=== PATIENT | male | born 1940 | race Caucasian/White ===

== ENCOUNTER → 2016-09-15 | Outpatient (CLI) | payer OTHER ==
[~2016-09-15] MED LIST: GABA1CAP PO; GLUC1CAP28 PO; LOSA100T26; MULT-190 PO; NAPR1TAB9 PO; NAPR500T3; OMEG10002 PO
[2016-09-15 12:28] LABS: BASO % 1.1 %; BASO ABS # 0.04 K/uL (0-0.2); COMPLETE YES; EOS % 3.3 %; HEMATOCRIT 41.4 % (42-52); LYMPH % 31.5 %; LYMPH ABS # 1.15 K/uL (1.2-3.4); MEAN CELL VOLUME 98.1 fL (80-100); MEAN CORPUSCULAR HEMOGLOBIN 33.4 pg (25-34); MEAN CORPUSCULAR HGB CONC 34.1 g/dl (32-36); MEAN PLATELET VOLUME 10.5 fL (7.4-10.4); MONO % 14.8 %; NEUT % 49.3 %; PLATELET COUNT 215 K/uL (130-400); RED BLOOD COUNT 4.22 M/uL (4.7-6.1); WHITE BLOOD COUNT 3.65 K/uL (4.8-10.8)
[2016-09-15 13:41] LABS: ESTIMATED AVERAGE GLUCOSE 111 mg/dl; HA1C FLAG Normal (Normal)
[2016-09-15 15:30] LABS: ALB/GLOB RATIO 1.4 (0.9-2); ALT/SGPT 21 U/L (12-78); BLOOD UREA NITROGEN 19 mg/dl (7-18); CALCIUM 9.3 mg/dl (8.5-10.1); CARBON DIOXIDE 29 mmol/L (21-32); CHLORIDE 105 mmol/L (98-107); GLUCOSE 103 mg/dl (70-99); SODIUM 142 mmol/L (136-145)
[2016-09-15 15:34] LABS: ALKALINE PHOSPHATASE 64 U/L (45-117); AST/SGOT 15 U/L (15-37); CHOLESTEROL 172 mg/dl (0-200); CHOLESTEROL/HDL RATIO 2.5; HDL CHOLESTEROL 68 mg/dl; LDL CHOLESTEROL CALCULATED 90 mg/dl; TRIGLYCERIDES 68 mg/dl (0-150); VERY LOW DENSITY LIPOPROT CALC 14 mg/dl
== END | disposition home or self-care (01) ==
LOC: C.LABBFT 07:52
PROVIDERS: ATTEND Internal Medicine
DX: D64.9 Anemia, unspecified (principal); R73.01 Impaired fasting glucose; I10 Essential (primary) hypertension

== ENCOUNTER → 2017-03-27 | Outpatient (CLI) | payer OTHER ==
[2017-03-27 12:12] LABS: BASO % 0.9 %; BASO ABS # 0.03 K/uL (0-0.2); COMPLETE YES; EOS % 3.7 %; HEMATOCRIT 40.2 % (42-52); LYMPH % 34.6 %; LYMPH ABS # 1.13 K/uL (1.2-3.4); MEAN CELL VOLUME 99.5 fL (80-100); MEAN CORPUSCULAR HEMOGLOBIN 32.2 pg (25-34); MEAN CORPUSCULAR HGB CONC 32.3 g/dl (32-36); MEAN PLATELET VOLUME 10.6 fL (7.4-10.4); MONO % 13.8 %; PLATELET COUNT 193 K/uL (130-400); RED BLOOD COUNT 4.04 M/uL (4.7-6.1); WHITE BLOOD COUNT 3.27 K/uL (4.8-10.8)
[2017-03-27 12:19] LABS: BLOOD UREA NITROGEN 32 mg/dl (7-18); BUN/CREATININE RATIO 32.2 (10-20); CALCIUM 9.4 mg/dl (8.5-10.1); CARBON DIOXIDE 29 mmol/L (21-32); CHLORIDE 106 mmol/L (98-107); GLUCOSE 103 mg/dl (70-99); POTASSIUM 4.1 mmol/L (3.5-5.1); SODIUM 141 mmol/L (136-145)
[2017-03-27 12:23] LABS: ALB/GLOB RATIO 1.2 (0.9-2); ALKALINE PHOSPHATASE 77 U/L (45-117); ALT/SGPT 27 U/L (12-78); AST/SGOT 22 U/L (15-37); CHOLESTEROL 160 mg/dl (0-200); CHOLESTEROL/HDL RATIO 2.8; HDL CHOLESTEROL 58 mg/dl; LDL CHOLESTEROL CALCULATED 90 mg/dl; TRIGLYCERIDES 58 mg/dl (0-150); VERY LOW DENSITY LIPOPROT CALC 12 mg/dl
[2017-03-27 12:57] LABS: ESTIMATED AVERAGE GLUCOSE 123 mg/dl; HA1C FLAG Normal (Normal)
--- NOTE | 2017-04-05 09:45 | CODING QUERY MEDICAL NECESSITY ---
SUPPORTING DIAGNOSIS NEEDED Monet, A supporting diagnosis is required for the test/procedure performed on this patient in order for us to be reimbursed by the patient's insurance. Please provide a supporting diagnosis for the following test/procedure listed below next to the test name along with your signature. *If there is no additional diagnosis for this patient that would support the following test/procedure please document that below next to the test/procedure. Test(s)/Procedure(s) that require a supporting diagnosis: * [id number] GLYCATED HEMOGLOBIN DIAGNOSIS: DATE OF SERVICE: 03/27/17 Provider Signature: Date: Thank you Shukri Ferrell [facility] Information Management Once completed, please kindly fax back to [phone] For questions please call [phone]
== END | disposition home or self-care (01) ==
LOC: C.LABBFT 07:40
PROVIDERS: ATTEND Physician Assistant Medical
DX: D64.9 Anemia, unspecified (principal); R73.01 Impaired fasting glucose

== ENCOUNTER → 2017-09-25 | Outpatient (CLI) | payer OTHER ==
[~2017-09-25] MED LIST changes: -LOSA100T26; +LOSA100T33
[2017-09-25 12:39] LABS: BASO % 1.2 %; BASO ABS # 0.04 K/uL (0-0.2); EOS % 2.4 %; EOS ABS # 0.08 K/uL (0-0.5); HEMATOCRIT 39.4 % (42-52); HEMOGLOBIN 13.1 g/dL (14.0-18.0); IG# 0.01 K/uL (0.00-0.02); LYMPH % 34.5 %; LYMPH ABS # 1.15 K/uL (1.2-3.4); MEAN CELL VOLUME 99.5 fL (80-100); MEAN CORPUSCULAR HEMOGLOBIN 33.1 pg (25-34); MEAN CORPUSCULAR HGB CONC 33.2 g/dl (32-36); MEAN PLATELET VOLUME 10.6 fL (7.4-10.4); MONO % 13.5 %; MONO ABS # 0.45 K/uL (0.11-0.59); NEUT % 48.1 %; PLATELET COUNT 257 K/uL (130-400); RED CELL DISTRIBUTION WIDTH CV 12.8 % (11.5-14.5); RED CELL DISTRIBUTION WIDTH SD 46.4 fL (36.4-46.3); WHITE BLOOD COUNT 3.33 K/uL (4.8-10.8)
[2017-09-25 13:36] LABS: ALBUMIN 3.9 gm/dl (3.4-5.0); ALT/SGPT 25 U/L (12-78); AST/SGOT 20 U/L (15-37); BLOOD UREA NITROGEN 32 mg/dl (7-18); CALCIUM 9.4 mg/dl (8.5-10.1); CARBON DIOXIDE 30 mmol/L (21-32); CHOLESTEROL 173 mg/dl (0-200); CREATININE 1.19 mg/dl (0.60-1.40); GLUCOSE 99 mg/dl (70-99); POTASSIUM 4.2 mmol/L (3.5-5.1); SODIUM 137 mmol/L (136-145); TOTAL PROTEIN 7.1 gm/dl (6.4-8.2)
[2017-09-25 13:46] LABS: ALKALINE PHOSPHATASE 73 U/L (45-117); LDL CHOLESTEROL CALCULATED 103 mg/dl
== END | disposition home or self-care (01) ==
LOC: C.LABBFT 08:24
PROVIDERS: ATTEND Internal Medicine
DX: Z12.5 Encounter for screening for malignant neoplasm of prostate (principal); I10 Essential (primary) hypertension; D64.9 Anemia, unspecified; R73.01 Impaired fasting glucose

== ENCOUNTER 2018-04-05 08:17 | Inpatient (IN) | payer OTHER ==
[2018-03-20 13:56] VITALS: BMI 22.0
[2018-03-21 08:45] VITALS: BMI 22.0
[~2018-04-05] VITALS: Ht 170.2 cm; Wt 64.8 kg
[2018-04-05] VITALS (7 sets, daily range): BP systolic 106–137; BP diastolic 73–97; PULSE 79–108; TEMP 36.4–36.7; O2SAT 98–100; Ht 170.2 cm; Wt 64.8 kg
--- NOTE | 2018-04-05 08:01 | HISTORY & PHYSICAL EXAMINATION ---
DATE OF ADMISSION: 04/05/2018 CHIEF COMPLAINT: He is being preoped for surgery, laminectomy L2-L5 with possible fusion. HISTORY OF PRESENT ILLNESS: Mr. Mcneal is a delightful patient. I have known him for years. He has a significant problem with a scoliotic curvature, weakness, pain, and he is going downhill with increasing difficulties. We proposed surgery for him to stabilize his spine, hopefully negate his pain, hopefully halt the progression of his neurological deficits. He has failed conservative care. He has had difficulty for years. He has difficulty lifting, he has difficulty walking. He is improved with sitting. PAST MEDICAL HISTORY: Hypertension, skin carcinomas. No COPD, diabetes, or heart disease. PAST SURGICAL HISTORY: Negative. ALLERGIES: Negative. FAMILY HISTORY: Skin carcinoma. SOCIAL HISTORY: He is , 2 drinks of alcohol a day. Chews tobacco products. Moderately active. He has gone downhill according to family over the last half year. REVIEW OF SYSTEMS: Denies fever, sweats, chills, weight loss, gain, fatigue, malaise. Denies ear, nose and throat issues. Denies chest pain, palpitations. No asthma, wheezing. Does have some loss of appetite. No confusion or memory loss. He has joint pain, stiffness, weakness and muscle pain. No diabetes. No immune deficiency. No easy bruisability. MEDICATIONS: Include losartan, Naprosyn, and gabapentin. PHYSICAL EXAMINATION: GENERAL: He is in distress. He is concerned, worried, and in pain. VITAL SIGNS: He is 5 feet 8 inches. He is 150. Blood pressure 130/80, pulse 80, respiratory rate 16. HEENT: Essentially normal including facial nerves and cranial nerves, all intact. CARDIAC: Normal, S1, S2, no S3. Regular rate and rhythm, 80 beats per minute. LUNGS: Clear. ABDOMEN: Soft, nontender. MUSCULOSKELETAL: He has significant pain with flexion and extension of the spine, pain with percussion. Weakness to extremities. NEUROLOGIC: Absent reflexes, loss of sensation and muscle atrophy. PLAN: Includes laminectomy, L2-L3, L3-L4, L4-L5, and possible fusion of the lumbar spine for his significant spinal deformity.
[~2018-04-05 08:17] MED LIST changes: +ACETAMINOPHEN 500 MG TAB PO SCH; +ACETAMINOPHEN IV 1000MG/100ML IV SCH; +BUPR-79 PO; +CEFAZOLIN 2000MG IV PUSH 15 ML IV SCH; +CYM/30 PO; -GABA1CAP PO; -GLUC1CAP28 PO; +LACTATED RINGER'S 1000ML 1,000 ML IV SCH; -LOSA100T33; +LOSA100T33 PO; -NAPR1TAB9 PO; -NAPR500T3; +NSS 1000ML IV SCH; -OMEG10002 PO
[2018-04-05] MEDS ORDERED: PSYL0.524 PO (09:05)
[2018-04-05] MEDS ORDERED: VANCOMYCIN HCL 1000MG/20ML VIAL ONE ×2 (10:57→11:25)
[2018-04-05] MEDS ORDERED: THROMBIN FOR SOLN 20000 UNIT KIT ONE (10:57)
[2018-04-05] MEDS ORDERED: BACITRACIN 50000 UNIT VIAL ONE (10:57)
[2018-04-05] MEDS ORDERED: GELATIN SPONGE SZ 100 ONE ×2 (10:57→12:28)
[2018-04-05] MEDS ORDERED: BUPIVACAINE/EPINEPHRINE 0.5% MPF 1:200,000 30 ML VIAL ONE (11:00)
[2018-04-05] MEDS ORDERED: ROCURONIUM BROMIDE 10 MG/ML 5 ML VIAL ONE ×4 (11:05→14:59)
[2018-04-05] MEDS ORDERED: FENTANYL CITRATE INJ 50 MCG/1 ML 2 ML VIAL ONE ×2 (11:05→13:53)
[2018-04-05] MEDS ORDERED: LIDOCAINE HCL 2% 2 ML VIAL (20MG/ML) ONE (11:05)
[2018-04-05] MEDS ORDERED: PROPOFOL IV EMULSION 10 MG/ML 20 ML VIAL ONE (11:05)
--- NOTE | 2018-04-05 11:14 | History & Physical Bridge Note ---
H&P Re-Evaluation Bridge Note: I have examined the patient, reviewed the History & Physical and in the interval since the performance of the History & Physical I have noted the following changes of clinical significance: No changes noted
[2018-04-05] MEDS ORDERED: ATROPINE SULFATE 0.1 MG/ML 5ML SYR IV PRN (12:30)
[2018-04-05] MEDS ORDERED: LABETALOL HCL IV 5 MG/ML 20ML IV PRN (12:30)
[2018-04-05] MEDS ORDERED: ONDANSETRON INJ 2 MG/ML 2 ML VIAL IV PRN ×2 (12:30→15:30)
[2018-04-05] MEDS ORDERED: FLUMAZENIL 0.1 MG/1 ML 10 ML VIAL IV PRN (12:30)
[2018-04-05] MEDS ORDERED: EpHEDrine SULFATE INJ 50 MG/ML AMP IV PRN (12:30)
[2018-04-05] MEDS ORDERED: PROMETHAZINE HCL INJ 12.5 MG in SODIUM CHLORIDE 0.9% 50ML 50 ML IV PRN ×2 (12:30→15:30)
[2018-04-05] MEDS ORDERED: NALOXONE HCL 0.4 MG/1 ML VIAL/CARP IV PRN ×2 (12:30→15:30)
[2018-04-05] MEDS ORDERED: ONDANSETRON INJ 2 MG/ML 2 ML VIAL ONE (12:32)
[2018-04-05] MEDS ORDERED: PHENYLEPHRINE 100MCG/ML 5ML SYR ONE (12:32)
[2018-04-05] MEDS ORDERED: DEXAMETHASONE SOD INJ 4 MG/ML VIAL ONE (12:32)
[2018-04-05] MEDS ORDERED: EpHEDrine SULFATE 50MG/5ML SYR ONE (12:32)
[2018-04-05] MEDS ORDERED: GLYCOPYRROLATE INJ 0.2 MG/ML VIAL ONE (15:04)
[2018-04-05] MEDS ORDERED: NEOSTIGMINE METHYLSULFATE 1 MG/ML 10ML VIAL ONE (15:04)
[2018-04-05] MEDS ORDERED: CEFAZOLIN SOD 1 GM VIAL ONE (15:07)
--- NOTE | 2018-04-05 15:08 | DIAGNOSTIC IMAGING REPORT ---
LUMBAR SPINE, INTRAOPERATIVE FLUOROSCOPY HISTORY: L4-5 interbody fusion. FLUOROSCOPY TIME: 7.6 seconds. FINDINGS: Intraoperative fluoroscopy was provided for the lumbar spine. A single fluoroscopic spot image demonstrates posterior decompression fusion from L1 through L5 with pedicle screws and rods. The hardware appears intact. IMPRESSION: Fluoroscopy provided for a lumbar spine posterior fusion.. Electronically signed by: Fredi No M.D. 04/05/2018 3:06 PM Dictated Date/Time: 04/05/2018 3:06 PM
--- NOTE | 2018-04-05 15:19 | [facility] Post Operative Brief Note ---
Immediate Operative Summary Operative Date Apr 05, 2018. Pre-Operative Diagnosis Spinal stenosis, scoliosis Post-Operative Diagnosis Spinal stenosis, scoliosis Procedure(s) Performed L2-L5 Posterior Lumbar Decompression, L1-L5 Posterior Lumbar Fusion, Interbody Fusion L4-L5, Use of Demineralized Bone Matrix. Surgeon Dr. Cleveland Fiscal Economist Surgeon(s) Sanju Meek PA-C Estimated Blood Loss 500ml Findings Consistent with Post-Op Diagnosis Specimens None per surgeon Anesthesia Type General Disposition Disposition: Recovery Room / PACU Overlapping Procedure I was immediately available: during the entire case
[2018-04-05] MEDS ORDERED: FLOSEAL HEMOSTATIC MATRIX 5ML TOP ONE (15:23)
[2018-04-05] MEDS ORDERED: SODIUM CHLORIDE 0.9% 1000ML 1,000 ML IV SCH (15:24)
[2018-04-05] MEDS ORDERED: LORAZEPAM INJ 1 MG in SYRINGE 0.5 ML IV PRN (15:30)
[2018-04-05] MEDS ORDERED: LORAZEPAM 1 MG TAB PO PRN (15:30)
[2018-04-05] MEDS ORDERED: ACETAMINOPHEN 325 MG TAB PO PRN (15:30)
[2018-04-05] MEDS ORDERED: METOCLOPRAMIDE HCL INJ 5 MG/ML 2 ML VIAL IV PRN (15:30)
[2018-04-05] MEDS ORDERED: MAGNESIUM HYDROXIDE SUSP 30 ML UDC PO PRN (15:30)
[2018-04-05] MEDS ORDERED: HYDROmorphone HCL 0.5MG/ML 50 ML CASSETTE ONE (15:36)
[2018-04-05 16:00] LABS: HEMATOCRIT 33.4 % (42-52); HEMOGLOBIN 11.1 g/dL (14.0-18.0)
[2018-04-05] MEDS: HYDROmorphone INJ 1 MG/ML SYR IV PRN ×5 (16:03→16:26)
--- NOTE | 2018-04-05 16:40 | Anesthesiology Progress Note ---
Anesthesia Post Op Note Date & Time Apr 05, 2018 at 16:40 Vital Signs Pain Intensity: 4 Vital Signs Past 12 Hours Date Time Temp Pulse Resp B/P (MAP) Pulse Ox O2 Delivery O2 Flow Rate FiO2 04/05/18 16:30 37 102 20 114/69 100 Nasal Cannula 4 04/05/18 16:20 99 20 108/72 100 Nasal Cannula 4 04/05/18 16:10 105 20 118/74 99 Nasal Cannula 4 04/05/18 16:00 109 20 121/82 100 Nasal Cannula 4 04/05/18 15:50 112 20 129/83 100 Oxymask 10 04/05/18 15:40 109 20 126/96 100 Oxymask 10 04/05/18 15:32 36.4 111 18 129/96 100 Oxymask 10 04/05/18 09:06 36.6 79 20 137/97 (110) Room Air 98 Notes Mental Status: alert / awake / arousable, participated in evaluation Pt Amnestic to Procedure: Yes Nausea / Vomiting: adequately controlled Pain: adequately controlled Airway Patency, RR, SpO2: stable & adequate BP & HR: stable & adequate Hydration State: stable & adequate Anesthetic Complications: no major complications apparent
[2018-04-05] MEDS: HYDROmorphone HCL 0.5MG/ML 50 ML CASSETTE IV PRN ×2 (17:02→22:55)
--- NOTE | 2018-04-05 19:36 | OPERATIVE REPORT ---
DATE OF OPERATION: 04/05/2018 PREOPERATIVE DIAGNOSES: Severe spinal stenosis, degenerative scoliosis, and disk space collapse lumbar spine with significant motor weakness to the extremity. POSTOPERATIVE DIAGNOSES: Severe spinal stenosis, degenerative scoliosis, and disk space collapse lumbar spine with significant motor weakness to the extremity. PROCEDURE: Include: 1. Decompression of neural elements L2, L3, L4, L5, a 4-level decompression foraminotomy, partial facetectomy. 2. Pedicle screw instrumentation, L1, L2, L3, L4, L5 lumbar spine. 3. Posterior lateral fusion. 4. Posterior lumbar interbody fusion, L4-L5. 5. Correction of a scoliotic curvature. ANESTHESIA: General. COMPLICATIONS: Zero. BLOOD LOSS: 500. DESCRIPTION OF PROCEDURE: The patient was taken to the operating room after informed consent was obtained, placed prone, scrubbed, prepped and draped sterile. Formal timeout provided. We made a skin incision from T12 down to L4. We eventually had to lengthen the skin incision to accommodate the L5 vertebrae. We dissected the soft tissue free with meticulous care getting exposure of the transverse processes, went down to 5. I was pleased with the exposure. We then provided decompression part of the procedure taking off the lamina of 5, 4, 3, and 2, foraminotomies and partial facetectomies. We tried to loosen up the facet joints to augment a correctional scoliosis but in actuality there was not a whole lot of motion, I would say minimal motion when we tried to correct his curvature secondary to significant anterior osteophyte structures. We are able to safely get pedicle screws in bilaterally. We could not safely get a pedicle screw on the right hand side at L1. We then were able to do a good interbody fusion L4-L5, retracted the dura, jacked up the interspace, put an interbody packed with bone. I was pleased with this as well and we locked down the spine in lordosis, slight correction of scoliosis. Irrigated thoroughly, bone grafted, closed in layers with #1 Vicryl, 2-0, and staple gun. Sterile dressing applied. The patient returned to PACU stable. No apparent complications. Sponge and needle count correct. Implants used for the case was Gl[employer] and I was there for the entire procedure. Mr. Sanju Meek PA-C was required for the entire procedure as well. I attest to the content of the Intraoperative Record and any orders documented therein. Any exception s are noted below.
[2018-04-05] MEDS: DEXAMETHASONE INJ 10 MG in SYRINGE 0 ML IV SCH (20:27)
[2018-04-05] MEDS: CEFAZOLIN IV 1,000 MG in SYRINGE 0 ML IV SCH (20:28)
[2018-04-05] MEDS: SODIUM CHLORIDE 0.9% 1000ML 1,000 ML IV SCH (20:29)
[2018-04-06 03:50] VITALS: BP 114/75; PULSE 107; TEMP 36.8; O2SAT 96
[2018-04-06] MEDS: DEXAMETHASONE INJ 10 MG in SYRINGE 0 ML IV SCH ×3 (03:54→20:13)
[2018-04-06] MEDS: CEFAZOLIN IV 1,000 MG in SYRINGE 0 ML IV SCH ×2 (03:55→12:26)
[2018-04-06] MEDS ORDERED: BISACODYL 10 MG SUPP PR PRN (06:00)
[2018-04-06] MEDS ORDERED: BISACODYL 5 MG TABEC PO PRN (06:00)
[2018-04-06 07:07] VITALS: BP 119/75; PULSE 96; TEMP 36.9; O2SAT 94
[2018-04-06] MEDS: HYDROmorphone HCL 0.5MG/ML 50 ML CASSETTE IV PRN (07:16)
[2018-04-06] MEDS ORDERED: OXYCODONE/ACETAMINOPHEN 5-325 TAB PO PRN (08:00)
[2018-04-06] MEDS ORDERED: HYDROmorphone INJ 2 MG/ML SYR/VIAL IV PRN (08:00)
[2018-04-06] MEDS ORDERED: HYDROmorphone INJ 0.5 MG/0.5 ML SYR IV PRN (08:00)
[2018-04-06] MEDS ORDERED: DC PCA SCH (08:00)
[2018-04-06] MEDS: POLYETHYLENE (MIRALAX) 17 GM PACK PO SCH (08:22)
[2018-04-06] MEDS: DULOXETINE (CYMBALTA) 30 MG CAP PO SCH (08:23)
[2018-04-06] MEDS: CEROVITE ADV FORMULA TAB PO SCH (08:23)
[2018-04-06] MEDS: HYDROCHLOROTHIAZIDE 25 MG TAB PO SCH ×2 (08:23→08:36)
[2018-04-06] MEDS: LOSARTAN POTASSIUM 50 MG TAB PO SCH ×2 (08:23→08:36)
[2018-04-06] MEDS: SODIUM CHLORIDE 0.9% 1000ML 1,000 ML IV SCH (08:24)
[2018-04-06 11:34] VITALS: BP 122/82; PULSE 109; TEMP 36.8; O2SAT 95
[2018-04-06] MEDS ORDERED: NURSING VERBAL MED ORDER ONE (12:45)
--- NOTE | 2018-04-06 13:15 | Anesthesiology Progress Note ---
Anesthesia Post Op Note Date & Time Apr 06, 2018 at 13:14 Vital Signs Pain Intensity: 5.0 Vital Signs Past 12 Hours Date Time Temp Pulse Resp B/P (MAP) Pulse Ox O2 Delivery O2 Flow Rate FiO2 04/06/18 11:34 36.8 109 18 122/82 (95) 95 Room Air 04/06/18 07:40 Room Air 04/06/18 07:07 36.9 96 16 119/75 (90) 94 Room Air 04/06/18 03:50 36.8 107 15 114/75 (88) 96 Nasal Cannula 2.0 Notes Mental Status: alert / awake / arousable, participated in evaluation Pt Amnestic to Procedure: Yes Nausea / Vomiting: adequately controlled Pain: adequately controlled Airway Patency, RR, SpO2: stable & adequate BP & HR: stable & adequate Hydration State: stable & adequate Anesthetic Complications: no major complications apparent
[2018-04-06] MEDS: OXYCODONE/ACETAMINOPHEN 5-325 TAB PO PRN ×2 (14:21→18:19)
[2018-04-06 15:52] VITALS: BP 120/76; PULSE 94; TEMP 36.6; O2SAT 94
--- NOTE | 2018-04-06 16:12 | Discharge Instructions ---
Discharge Instructions Date of Service Apr 06, 2018. Admission Reason for Admission: Spinal Stenosis, Scliosis Discharge Discharge Diagnosis / Problem: same Discharge Goals Goal(s): Improve function Activity Recommendations Activity Limitations: as noted below Lifting Limitations: no more than 5 pounds, until after follow-up appointment . Instructions / Follow-Up Instructions / Follow-Up MEDICATIONS: Please take your prescriptions as instructed at your pre-op appointment. SPECIAL CARE: The following information is intended to answer some of the common questions and concerns regarding your surgery. Each patient is an individual and receives individual counselling throughout the course of treatment, from diagnosis to surgery all the way through recovery. What follows is not an exhaustive list, but should be a useful guide to some of the common questions and concerns patients have regarding their surgeries. These are not provided to keep you from calling us; rather, they give you something accurate and concrete to reference as you recover from your procedure. If you need us, we are available to you. As always, if you are not sure about something, call us at [phone]. MEDICAL EMERGENCIES: For these conditions, call 911 or go to your local hospital-based Emergency Department - not [facility] or equivalent. * Paralysis * Severe chest pain or difficulty breathing * Swelling or redness of either leg Spine procedures can be rather complex and though complications are rare, they do occur. In such cases, effective advice regarding emergency situations cannot always be addressed over the telephone. You may be referred to the emergency department for more effective management of your problem. Activity Limitations: It is important to give your body time to heal, so please limit your activities : * In general, don't do anything that moves your spine too much. You should avoid contact sports, twisting or heavy lifting while you recover. * 5-10 pounds is all you should attempt to lift. * You should not plan on driving for approximately 3 weeks and you should avoid traveling more than 30-45 minutes at a time. Longer trips should be broken down with walking breaks spaced appropriately. * Physical therapy is not usually required. * Walking and good posture practices will help you recover and regain your function. * Avoid straining or sudden changes in position. * In general, the goal is to take it easy and recover. Don't cause any new problems. Just relax. Showers: * Do not take a bath, use a Jacuzzi or hot tub or otherwise submerge your incision. * It is usually safe to take a shower 4-5 days after your surgery. * Your incision does not require any special creams or ointments. * Simply clean it with soap and water, dry and re-dress with a clean bandage afterwards. Incision: * Keep incision clean, dry and protected until your first follow-up appointment. * Some amount of drainage and redness is normal. Any drainage should be fairly clear and not have a foul odor. * If you feel anything is wrong or you have excessive drainage, please call us. * Your stitches and kristie will be removed 10-14 days after your surgery. At the time of your first post-op visit. * Neck surgeries are typically closed with a suture underneath the skin. The steri-strips over the incision should be maintained until we see you in the office. Bracing: * You may be provided with a back or neck brace to encourage good posture and prevent injury. It will remind you not to do too much as you heal and will alert others to the fact that you have had a surgery. * Back braces may be removed for showers and when you are resting at home. They must be worn when you are walking around for any period of time or for travel. * For neck surgery, you will likely be provided with two cervical collars. The soft collar ([place] or foam rubber) is worn most commonly throughout the day and while sleeping. The plastic collar (provided at the hospital) is for showering/bathing. * Except while eating, collars should remain in place. More specifically, bracing is provided for a purpose and should be worn. * Please obtain your brace or collars prior to your operation and bring them to the hospital with you on the day of surgery. * You should also bring your collars to your post-op appointment with Dr. Cleveland. You should always take good care of your body and practice healthy habits, especially following surgery. You should: * Follow your doctor's treatment plan * Sit and stand properly with good posture (ears over shoulders, shoulders over hips) Don't slouch * Learn to lift correctly * Exercise regularly (low-impact aerobic exercise is especially good, but check with your doctor first) * Generally, be up and walking for 5-10 minutes at a time at least 3-4 times per day from the day you get home * Increasing walking to tolerance until you can walk for 20-30 minutes at a time * Attain and maintain a healthy body weight * Eat healthy foods ( a well-balanced, low-fat diet rich in fruits and vegetables) and get enough calcium * Avoid excessive use of alcohol When to call our office - If you notice any of the following: * Increased pain not relieve by pain medicine * Fevers greater then 100 degrees F, chills or flu symptoms * Increased redness around incision * Drainage from the incision that is not clear * Any foul smelling drainage * Swelling or fluid collection beneath the skin Miscellaneous: * In the hospital, you may be given a walker or cane for support while walking. These are temporary needs and are intended to prevent injuries due to falls. You may discontinue them when you feel strong and steady enough on your feet. * Sleep in a comfortable position. We find that many patients find a lounge chair or recliner with several pillows to be beneficial in the early post-operative period. * The support stockings should be used for 7-10 days and may be discontinued when you are back to walking more and conducting usual household activities. No problem is insignificant. We are here to help you and get you well. Contact us at [phone]. Definitions: Foraminotomy: If part of the disc or a bone spur (osteophyte) is pressing on a nerve as it leaves the vertebra (through an exit called the foramen), a foraminotomy may be done. Otomy means "to make an opening." A foraminotomy is making the opening of the foramen larger, so the nerve can exit without being compressed. Laminotomy: Similar to the foraminotomy, a laminotomy makes a larger opening, this time in your bony plate protecting your spinal canal and spinal cord (the lamina). The lamina may be pressing on your nerve, so the surgeon may make more room for the nerves using a laminotomy. Laminectomy: Sometimes, a laminotomy is not sufficient. The surgeon may need to remove all or part of the lamina. This procedure is called a laminectomy. This can often be done at many levels without any harmful effects. Current Hospital Diet Patient's current hospital diet: Regular Diet Discharge Diet Recommended Diet: Regular Diet Procedures Procedures Performed: L2-L5 Posterior Lumbar Decompression, L1-L5 Posterior Lumbar Fusion, Interbody Fusion L4-L5, Use of Demineralized Bone Matrix. Pending Studies Studies pending at discharge: no Laboratory Results Hemoglobin A1c Test 02/16/18 08:30 Range/Units Estimated Average Glucose 131 mg/dl Hemoglobin A1c 6.2 H 4.5-5.6 % Lipid Panel Test 02/16/18 08:30 Range/Units Triglycerides Level 77 0-150 mg/dl Cholesterol Level 168 0-200 mg/dl HDL Cholesterol 52 mg/dl Cholesterol/HDL Ratio 3.2 LDL Cholesterol, Calculated 101 mg/dl Medical Emergencies . Who to Call and When: Medical Emergencies: If at any time you feel your situation is an emergency, please call 911 immediately. . Non-Emergent Contact Non-Emergency issues call your: Primary Care Provider . "Provider Documentation" section prepared by Sharad Cleveland. .
[2018-04-06 23:05] VITALS: BP 125/75; PULSE 94; TEMP 36.4; O2SAT 92
[2018-04-07] MEDS: DEXAMETHASONE INJ 10 MG in SYRINGE 0 ML IV SCH (04:04)
[2018-04-07 07:30] VITALS: BP 152/88; PULSE 96; TEMP 36.7; O2SAT 96
[2018-04-07] MEDS: HYDROCHLOROTHIAZIDE 25 MG TAB PO SCH (08:29)
[2018-04-07] MEDS: POLYETHYLENE (MIRALAX) 17 GM PACK PO SCH (08:29)
[2018-04-07] MEDS: LOSARTAN POTASSIUM 50 MG TAB PO SCH (08:30)
[2018-04-07] MEDS: DULOXETINE (CYMBALTA) 30 MG CAP PO SCH (08:30)
[2018-04-07] MEDS: CEROVITE ADV FORMULA TAB PO SCH (08:30)
[2018-04-07 09:25] VITALS: BP 152/88; PULSE 96; TEMP 36.7; O2SAT 96
[2018-04-07] MEDS: OXYCODONE/ACETAMINOPHEN 5-325 TAB PO PRN (09:46)
--- NOTE | 2018-04-07 15:02 | DISCHARGE SUMMARY ---
His preop, postop, and surgical procedure was that of a major reconstructive spine surgery and fusion, instrumentation, and correction of his curve. He is day 2. He is doing well amazingly so actually, no complaints, afebrile. Improvement in neurological status. Pain controlled. He will be discharged home later this morning. He has prescriptions at home for a walker and for medication and he has a followup appointment. Instructions given.
== END 2018-04-07 10:42 | disposition home or self-care (01) | DRG 455 ==
LOC: C.ACU 08:17 → C.3E 15:29 → ENRESERV 16:04
PROVIDERS: ADMIT Orthopaedic Surgery Orthopaedic Surgery of the Spine; ATTEND Orthopaedic Surgery Orthopaedic Surgery of the Spine
PROC: 0SN00ZZ Release Lumbar Vertebral Joint, Open Approach (ICD-10-PCS; principal; 2018-04-05 10:45)
PROC: 0SG0071 Fusion of Lumbar Vertebral Joint with Autologous Tissue Substitute, Posterior Approach, Posterior Column, Open Approach (ICD-10-PCS; principal; 2018-04-05 10:45)
PROC: 0SG00AJ Fusion of Lumbar Vertebral Joint with Interbody Fusion Device, Posterior Approach, Anterior Column, Open Approach (ICD-10-PCS; principal; 2018-04-05 10:45)
DX: M41.86 Other forms of scoliosis, lumbar region (principal); M48.061 Spinal stenosis, lumbar region without neurogenic claudication; I10 Essential (primary) hypertension; Z79.899 Other long term (current) drug therapy

== ENCOUNTER 2019-07-17 17:03 | Inpatient (IN) ==
[2019-07-17] MEDS ORDERED: SODIUM CHLORIDE 0.9% 1000ML 1,000 ML IV ONE ×2 (17:13→19:20)
[2019-07-17] MEDS ORDERED: ACETAMINOPHEN 1,000 MG/100 ML VIAL IV STA (17:15)
--- NOTE | 2019-07-17 17:36 | Emergency Department Note ---
Entered by Lacy Laura acting as a scribe for Efrain Pitts DO History of Present Illness General Chief complaint: Shortness of Breath/Dyspnea Stated complaint: SOB, CONFUSION, LETHARGIC Time Seen by Provider: 07/17/19 17:11 Source: patient and family History of Present Illness Location: chest Pain Consistency: + constant Associated symptoms: + denies other symptoms (rhinorrhea, leg swelling increased from baseline, abdominal pain, diarrhea), + confusion (increasing), + fever/chills (Tmax 102), + shortness of breath (per family SOB is increasing but pt denies SOB today) and + other (increasing lethargy, abdominal distension); no chest pain The patient is a 78 year old male with PMHx pertinent for ALS, tracheotomy, feeding tube in left abdomen, PNA, HTN, recent ED visits, and other relevant medical problems indicated on [employer] who presents to the Emergency Room with complaints of shortness of breath and dyspnea. The patient's family states that the patient has been experiencing increasing shortness of breath and lethargy which worsened today associated with fever (Tmax 102 degrees), trouble standing up, abdominal pain, and increasing confusion. However, the patient is denying current SOB and abdominal pain even though his family states otherwise. His patient reports that the patient's O2 levels are usually 92-94 on RA. Additionally the patient did not take any medicine for fever today. The family also notes that his last bowel movement was at 12:00PM along with one this morning. The family also reports that the patient's abdomen has been distended and that he had a recent ED visit for the same. They explain that when his abdomen is distended they notice that his stats decrease. The patient also recently finished Cefdinir 1 day ago and he was placed on this due to recent increased WBC count. Of note, the patient's family states that his feeding tube is working alright and that he has consistent loose stool which they believe is due to the feeding tube. He denies chest pain, rhinorrhea, increasing leg swelling from baseline, and diarrhea. The patient and his family offer no additional concerns at this time. Home Medications Home Medications Medication Instructions Recorded Confirmed Type acetaminophen 500 mg/15 mL oral 500 - 1,000 mg FEEDING TUBE Q6 PRN 04/26/19 07/17/19 History liquid ml albuterol sulfate 90 mcg/actuation 2 puffs INHALATION Q6 PRN gm 04/26/19 07/17/19 History aerosol inhaler lorazepam 0.5 mg tablet 0.5 mg FEEDING TUBE TID PRN tab 04/26/19 07/17/19 History potassium chloride 20 mEq/15 mL 20 meq FEEDING TUBE DAILY ml 04/26/19 07/17/19 History oral liquid simethicone 80 mg chewable tablet 80 mg FEEDING TUBE BID tab 04/26/19 07/17/19 History sodium chloride 3 % for 0 ml INHALATION Q6 PRN ml 04/26/19 07/17/19 History nebulization trazodone 50 mg tablet 25 mg FEEDING TUBE HS tab 04/26/19 07/17/19 History Atropine/Diphen. 0.025/2.5mg 1 dose FEEDING TUBE QAM 07/17/19 07/17/19 History Atropine/Diphenoxy 0.025/2.5mg 0 mg FEEDING TUBE TID PRN 07/17/19 07/17/19 History Guaifenesin 200mg (10 Ml) 1 dose FEEDING TUBE BID 07/17/19 07/17/19 History Scopolamine Patch 33mg/24hr 1 patch TOPICAL UD 07/17/19 07/17/19 History acetaminophen [Tylenol Extra 500 mg FEEDING TUBE HS 07/17/19 07/17/19 History Strength] gabapentin [Neurontin] 250 mg FEEDING TUBE HS 07/17/19 07/17/19 History glycopyrrolate 1 mg FEEDING TUBE BID 07/17/19 07/17/19 History lansoprazole 30 mg FEEDING TUBE UD 07/17/19 07/17/19 History loperamide 2 mg FEEDING TUBE BID 07/17/19 07/17/19 History loperamide 2 mg PO .Q2HR PRN 07/17/19 07/17/19 History lorazepam 0.5 mg FEEDING TUBE HS 07/17/19 07/17/19 History nutritional supplements [Osmolite 0 ea FEEDING TUBE UD 07/17/19 07/17/19 History 1.5 Jas] riluzole 50 mg FEEDING TUBE Q12H 07/17/19 07/17/19 History sertraline 100 mg PO DAILY 07/17/19 07/17/19 History simethicone 80 mg FEEDING TUBE TID PRN 07/17/19 07/17/19 History Allergies Allergy/AdvReac Type Severity Reaction Status Date / Time No Known Allergies Allergy NKA Verified 07/17/19 19:29 Past Med/Surg History Medical History Amyotrophic lateral sclerosis (ALS) HTN (hypertension) Lumbar stenosis Surgical History History of lumbar laminectomy Family History Other No significant family history Social History Preferred Language: Mexican Communication Ability: Impaired Beliefs That Will Affect Care: None marital status: Current Living Situation: Family current occupational status: retired Feels Safe at Home: Yes Safety Concerns: Feels Safe At This Time Smoking Status: Former smoker Hx Alcohol Use: No Hx Substance Use: No Review of Systems See HPI for pertinent positives & negatives. and A total of 10 systems reviewed and were otherwise negative Physical Exam Vital Signs Vital Signs - 24 hr 07/17/19 17:45 07/17/19 18:00 07/17/19 18:01 Temperature Pulse Rate 112 H 110 H 110 H Pulse Rate from SpO2 Sensor 113 H 110 H 109 H Respiratory Rate 22 15 21 Blood Pressure 102/64 Blood Pressure Mean 69 Pulse Oximetry 92 93 92 Oxygen Delivery Method Trach Collar Trach Collar Trach Collar Oxygen Flow Rate 2 2 2 07/17/19 18:15 07/17/19 18:30 07/17/19 18:31 Temperature Pulse Rate 109 H 103 H 103 H Pulse Rate from SpO2 Sensor 109 H 103 H 104 H Respiratory Rate 15 14 15 Blood Pressure 107/53 L Blood Pressure Mean 90 Pulse Oximetry 92 93 93 Oxygen Delivery Method Trach Collar Trach Collar Trach Collar Oxygen Flow Rate 2 2 2 07/17/19 18:45 07/17/19 19:21 07/17/19 19:30 Temperature 37.2 C Pulse Rate 104 H 96 H 94 H Pulse Rate from SpO2 Sensor 104 H 90 94 H Respiratory Rate 17 18 17 Blood Pressure 97/67 L 90/60 L Blood Pressure Mean 72 75 Pulse Oximetry 94 95 95 Oxygen Delivery Method Trach Collar Trach Collar Trach Collar Oxygen Flow Rate 2 2 2 07/17/19 19:31 07/17/19 19:45 07/17/19 19:46 Temperature Pulse Rate 93 H 95 H Pulse Rate from SpO2 Sensor 94 H 95 H Respiratory Rate 16 14 17 Blood Pressure Blood Pressure Mean Pulse Oximetry 95 95 Oxygen Delivery Method Trach Collar Trach Collar Oxygen Flow Rate 2 2 07/17/19 20:00 07/17/19 20:01 07/17/19 20:03 Temperature Pulse Rate 87 88 89 Pulse Rate from SpO2 Sensor 87 88 89 Respiratory Rate 12 13 16 Blood Pressure 71/53 L 85/53 L Blood Pressure Mean 56 57 Pulse Oximetry 95 95 96 Oxygen Delivery Method Trach Collar Trach Collar Trach Collar Oxygen Flow Rate 2 2 2 07/17/19 20:15 07/17/19 20:30 07/17/19 20:31 Temperature Pulse Rate 85 83 83 Pulse Rate from SpO2 Sensor 85 83 84 Respiratory Rate 13 13 15 Blood Pressure 75/54 L 83/53 L Blood Pressure Mean 61 62 Pulse Oximetry 96 96 96 Oxygen Delivery Method Trach Collar Trach Collar Trach Collar Oxygen Flow Rate 2 2 2 07/17/19 20:32 07/17/19 20:40 07/17/19 20:45 Temperature Pulse Rate 83 83 83 Pulse Rate from SpO2 Sensor 83 83 83 Respiratory Rate 13 13 12 Blood Pressure 83/55 L 85/56 L Blood Pressure Mean 60 61 Pulse Oximetry 96 95 97 Oxygen Delivery Method Trach Collar Trach Collar Trach Collar Oxygen Flow Rate 2 2 2 07/17/19 20:46 07/17/19 21:00 07/17/19 21:01 Temperature Pulse Rate 83 83 83 Pulse Rate from SpO2 Sensor 83 83 83 Respiratory Rate 13 14 13 Blood Pressure 81/55 L Blood Pressure Mean 63 Pulse Oximetry 97 97 97 Oxygen Delivery Method Trach Collar Trach Collar Trach Collar Oxygen Flow Rate 2 2 2 07/17/19 21:15 07/17/19 21:18 07/17/19 21:21 Temperature Pulse Rate 86 86 86 Pulse Rate from SpO2 Sensor 86 86 Respiratory Rate 15 14 14 Blood Pressure 90/59 L Blood Pressure Mean 65 Pulse Oximetry 97 97 97 Oxygen Delivery Method Trach Collar Trach Collar Oxygen Flow Rate 2 2 07/17/19 21:30 07/17/19 21:31 07/17/19 21:45 Temperature Pulse Rate 85 85 87 Pulse Rate from SpO2 Sensor 85 85 87 Respiratory Rate 13 14 12 Blood Pressure 78/54 L 77/54 L Blood Pressure Mean 57 62 Pulse Oximetry 98 98 98 Oxygen Delivery Method Trach Collar Trach Collar Trach Collar Oxygen Flow Rate 2 2 2 07/17/19 21:46 07/17/19 21:47 07/17/19 22:00 Temperature Pulse Rate 86 87 86 Pulse Rate from SpO2 Sensor 86 87 86 Respiratory Rate 12 13 14 Blood Pressure 79/53 L 87/59 L Blood Pressure Mean 63 64 Pulse Oximetry 97 97 97 Oxygen Delivery Method Trach Collar Trach Collar Trach Collar Oxygen Flow Rate 2 2 2 07/17/19 22:01 Temperature Pulse Rate 87 Pulse Rate from SpO2 Sensor 87 Respiratory Rate 14 Blood Pressure Blood Pressure Mean Pulse Oximetry 96 Oxygen Delivery Method Trach Collar Oxygen Flow Rate 2 GENERAL: The patient is awake and alert. He is not anxious appearing. EYES: The conjunctivae are clear. The pupils are round and reactive. EARS, NOSE, MOUTH AND THROAT: The nose is without any evidence of any deformity. Mucous membranes are dry. NECK: The neck is nontender and supple. RESPIRATORY: Shallow respirations were noted. Diminished breath sounds were noted at the left base. CARDIOVASCULAR: Regular rate and rhythm noted there no murmurs rubs or gallops normal S1 normal S2 GASTROINTESTINAL: The abdomen is moderately distended and diffusely tender. No specific guarding or rigidity was noted. MUSCULOSKELETAL/EXTREMITIES: There is no evidence of gross deformity full range of motion is noted in the hips and shoulders SKIN: Pedal edema was noted bilaterally. NEUROLOGIC: Patient is awake alert and oriented to person place and situation. Strength was diminished but symmetric. Course Course 1717: Past medical records reviewed. The patient was evaluated in room B05. A complete history and physical exam was performed. 2017: Discussed the patient's condition with Dr. Goodwin who agrees to see the patient and will take things from there. 2126: Spoke to Dr. Villar and Dr. Alexander from GI who discussed treatment options with the family. The family states that they do not want the patient to have surgery. 2134: [facility] The patient verbally expressed understanding and agreement of the treatment plan. The patient will be evaluated for further treatment. Administered Medications Diphenoxylate HCl/Atropine (Lomotil) 1 tab PO QAM JUDY Stop: 08/17/19 08:59 Last Admin: 07/18/19 08:29 Dose: Not Given Documented by: [id number] Enteral Nutritional Formula (Peptamen 1.5 Jas) 1,000 ml PEG DAILY@1400 JUDY; Protocol Stop: 08/17/19 13:59 Last Admin: 07/18/19 15:18 Dose: 1,000 ml Documented by: [id number] Cosigned by: [id number] Glycopyrrolate (Robinul) 1 mg PO BID [facility] Stop: 08/17/19 08:59 Last Admin: 07/18/19 08:30 Dose: Not Given Documented by: [id number] Guaifenesin (Robitussin Sugar Free) 1 mg PO BID [facility] Stop: 08/17/19 08:59 Last Admin: 07/18/19 08:30 Dose: Not Given Documented by: [id number] Lactated Ringer's (Lr) 1,000 mls @ 120 mls/hr IV .Q8H20M [facility] Stop: 08/16/19 23:47 Last Admin: 07/18/19 16:41 Dose: 120 mls/hr Documented by: [id number] Infusion: 07/18/19 16:41 Dose: 120 mls/hr Documented by: [id number] Admin: 07/18/19 08:25 Dose: 120 mls/hr Documented by: [id number] Cosigned by: [id number] Infusion: 07/18/19 08:20 Dose: 120 mls/hr Documented by: [id number] Cosigned by: [id number] Admin: 07/18/19 00:00 Dose: 120 mls/hr Documented by: [id number] Ioversol (Optiray 320 125ml) 116 ml IV ONCE PRN PRN Reason: Interaction Checking Stop: 07/21/19 19:08 Last Admin: 07/17/19 19:09 Dose: 116 ml Documented by: [id number] Lansoprazole (Prevacid) 30 mg GT BID [facility] Stop: 08/17/19 08:59 Last Admin: 07/18/19 08:29 Dose: Not Given Documented by: [id number] Loperamide HCl (Imodium A-D Liquid) 2 mg PO BID [facility] Stop: 08/17/19 08:59 Last Admin: 07/18/19 08:29 Dose: Not Given Documented by: [id number] Miscellaneous (Order Awaiting Action) 1 ea N/A QS [facility] Stop: 08/17/19 00:44 Last Admin: 07/18/19 01:56 Dose: Not Given Documented by: [id number] Miscellaneous (Check Scopolamine Patch Placement) 1 ea N/A QS [facility]Y Stop: 08/17/19 07:59 Last Admin: 07/18/19 16:41 Dose: 1 ea Documented by: [id number] Admin: 07/18/19 08:34 Dose: 1 ea Documented by: [id number] Cosigned by: [id number] Nystatin (Mycostatin) 5 ml PO QID [facility]Y Stop: 07/28/19 08:59 Last Admin: 07/18/19 13:32 Dose: 5 ml Documented by: [id number] Admin: 07/18/19 08:29 Dose: Not Given Documented by: [id number] Potassium Chloride (Uyen Ciel Elix) 20 meq GT DAILY JUDY Stop: 08/17/19 08:59 Last Admin: 07/18/19 08:29 Dose: Not Given Documented by: [id number] Scopolamine (Transderm-Scop) 1.5 mg TD Q72H [facility]Y Stop: 08/17/19 08:59 Last Admin: 07/18/19 08:32 Dose: 1.5 mg Documented by: [id number] Cosigned by: [id number] Sertraline HCl (Zoloft) 100 mg PEG DAILY [facility] Stop: 08/17/19 08:59 Last Admin: 07/18/19 08:30 Dose: Not Given Documented by: [id number] Discontinued Medications Sodium Chloride (Nss 1000ml) 1,000 mls @ 999 mls/hr IV .Q1H1M ONE Stop: 07/17/19 18:13 Last Infusion: 07/17/19 18:38 Dose: 0 mls/hr Documented by: [id number] Admin: 07/17/19 17:37 Dose: 999 mls/hr Documented by: [id number] Acetaminophen (Ofirmev) 1,000 mg in 100 mls @ 400 mls/hr IV NOW STA Stop: 07/17/19 17:29 Last Infusion: 07/17/19 17:52 Dose: 0 mls/hr Documented by: [id number] Admin: 07/17/19 17:37 Dose: 400 mls/hr Documented by: [id number] Sodium Chloride (Nss 1000ml) 1,000 mls @ 999 mls/hr IV .Q1H1M ONE Stop: 07/17/19 20:20 Last Infusion: 07/17/19 21:00 Dose: 0 mls/hr Documented by: [id number] Admin: 07/17/19 19:35 Dose: 999 mls/hr Documented by: [id number] Piperacillin Sod/Tazobactam Sod (Zosyn) 4.5 gm in 120 mls @ 240 mls/hr IV NOW ONE Stop: 07/17/19 19:49 Last Infusion: 07/17/19 20:04 Dose: 0 mls/hr Documented by: [id number] Admin: 07/17/19 19:34 Dose: 240 mls/hr Documented by: [id number] Lactated Ringer's (Lr) 1,000 mls @ 999 mls/hr IV .Q1H1M ONE Stop: 07/17/19 22:46 Last Infusion: 07/18/19 09:54 Dose: 0 mls/hr Documented by: [id number] Admin: 07/17/19 21:51 Dose: 999 mls/hr Documented by: [id number] Vancomycin HCl 1,750 mg/ (Sodium Chloride) 535 mls @ 200 mls/hr IV TODAY@0000 JUDY Stop: 07/18/19 02:41 Last Infusion: 07/18/19 03:00 Dose: 0 mls/hr Documented by: [id number] Admin: 07/18/19 00:15 Dose: 200 mls/hr Documented by: [id number] Piperacillin Sod/Tazobactam (Sod 3.375 gm/ Dextrose) 115 mls @ 28.75 mls/hr IV Q8H JUDY; Protocol Stop: 07/20/19 01:59 Last Admin: 07/18/19 11:01 Dose: 28.8 mls/hr Documented by: [id number] Cosigned by: [id number] Infusion: 07/18/19 06:09 Dose: 0 mls/hr Documented by: [id number] Admin: 07/18/19 02:12 Dose: 28.8 mls/hr Documented by: [id number] Potassium Chloride (K Marcin / Wtr) 10 meq in 100 mls @ 100 mls/hr IV Q1H [facility]Y Stop: 07/18/19 03:55 Last Infusion: 07/18/19 05:05 Dose: 0 mls/hr Documented by: [id number] Admin: 07/18/19 04:05 Dose: 100 mls/hr Documented by: [id number] Infusion: 07/18/19 03:12 Dose: 100 mls/hr Documented by: [id number] Admin: 07/18/19 02:12 Dose: 100 mls/hr Documented by: [id number] Vancomycin HCl 1,000 mg/ (Sodium Chloride) 270 mls @ 125 mls/hr IV Q12H [facility]Y Stop: 07/20/19 11:59 Last Admin: 07/18/19 13:27 Dose: 125 mls/hr Documented by: [id number] Impression & Plan Sigmoid volvulus, Fever, Small bowel obstruction, Hypotension Critical Care Time Critical Care Time: Yes Total Critical Care Time: 60 I have personally spent 60 minutes of critical care time in the direct management of this patient. This includes bedside care, interpretation of diagnostic studies, and testing, discussion with consultants, patient, and family members, and other required patient management activities. This 60 minutes is in excess of all separately billable procedures. Discharge Plan Visit Data *Final* Discharge Date/Time: 07/17/19 22:58 Chief Complaint: Shortness of Breath/Dyspnea Stated Complaint: SOB, CONFUSION, LETHARGIC ED Provider: Efrain Pitts Discharge Problem: Sigmoid volvulus, Fever, Small bowel obstruction, Hypotension Patient Disposition: Admitted As Inpatient Discharge Instructions Interventions: ED Discharge Assessment Last Done: 07/17/19 22:58 Medical Decision Making Differential Diagnosis Differential diagnosis includes but is not limited to etiologies such as viral syndrome, otitis, pharyngitis, pneumonia, influenza, meningitis, urinary tract infection, sepsis, bacteremia, as well as others were entertained. Medical Records Attestation: I reviewed the patient's medical records. Home Medications Current Medication List: was personally reviewed by me Laboratory Data Attestation: I reviewed the patient's lab results. Result diagrams: 07/18/19 05:58 07/18/19 05:58 Lab Results 07/17/19 07/17/19 07/17/19 Range/Units 17:48 17:48 17:48 WBC 3.04 L (4.8-10.8) K/uL RBC 3.59 L (4.7-6.1) M/uL Hgb 11.7 L (14.0-18.0) g/dL Hct 35.0 L (42-52) % MCV 97.5 (80-100) fL MCH 32.6 (25-34) pg MCHC 33.4 (32-36) g/dL RDW Std Deviation 52.3 H (36.4-46.3) fL RDW Coeff of Sudha 14.6 H (11.5-14.5) % Plt Count 310 (130-400) K/uL MPV 10.8 H (7.4-10.4) fL Immature Gran % (Auto) 0.7 % Neut % (Auto) 62.1 % Lymph % (Auto) 9.2 % [place] % (Auto) 28.0 % Eos % (Auto) 0.0 % Baso % (Auto) 0.0 % Immature Gran # (Auto) 0.02 (0.00-0.02) K/uL Neut # (Auto) 1.89 (1.4-6.5) K/uL Lymph # (Auto) 0.28 L (1.2-3.4) K/uL [place] # (Auto) 0.85 H (0.11-0.59) K/uL Eos # (Auto) 0.00 (0-0.5) K/uL Baso # (Auto) 0.00 (0-0.2) K/uL ESR (0-14) mm/hr PT 11.6 (9.0-12.0) Seconds INR 1.1 (0.9-1.1) APTT 36.5 H (21.0-31.0) Seconds PTT Ratio 1.3 VBG pH (7.36-7.41) VBG pCO2 (38-50) mmHg VBG pO2 mmHg VBG HCO3 mmol/L VBG O2 Saturation % VBG Base Excess mEq/L Barometric Pressure mm/Hg Sodium (136-145) mmol/L Potassium (3.5-5.1) mmol/L Chloride (98-107) mmol/L Carbon Dioxide (21-32) mmol/L Anion Gap (3-11) BUN (7-18) mg/dl Creatinine (0.6-1.4) mg/dl Est Cr Clr Drug Dosing ml/min Est GFR ( Amer) Est GFR (Non-Af Amer) BUN/Creatinine Ratio (10-20) Glucose (70-99) mg/dl Lactate 1.4 (0.4-2.0) mmol/L Calcium (8.5-10.1) mg/dl Magnesium (1.8-2.4) mg/dl Total Bilirubin (0.2-1) mg/dl AST (15-37) U/L ALT (12-78) U/L Alkaline Phosphatase (45-117) U/L Troponin I (0-0.045) ng/ml C-Reactive Protein (0-0.29) mg/dl Total Protein (6.4-8.2) gm/dl Albumin (3.4-5.0) gm/dl Globulin (2.5-4.0) gm/dl Albumin/Globulin Ratio (0.9-2) Procalcitonin (0-0.5) ng/ml Urine Color Urine Appearance (Clear) Urine pH (4.5-7.5) Ur Specific [place] (1.000-1.030) Urine Protein (Negative) Urine Glucose (UA) (Negative) Urine Ketones (Negative) Urine Blood (Negative) Urine Nitrite (Negative) Urine Bilirubin (Negative) Urine Urobilinogen (Negative) Ur Leukocyte Esterase (Negative) Urine WBC (Auto) (0-5) /hpf Urine RBC (Auto) (0-4) /hpf U Hyaline Cast (Auto) (0-5) /lpf U Epithel Cells (Auto) (0-5) /lpf Urine Bacteria (Auto) (Negative) 07/17/19 07/17/19 07/17/19 Range/Units 17:48 17:48 17:48 WBC (4.8-10.8) K/uL RBC (4.7-6.1) M/uL Hgb (14.0-18.0) g/dL Hct (42-52) % MCV (80-100) fL MCH (25-34) pg MCHC (32-36) g/dL RDW Std Deviation (36.4-46.3) fL RDW Coeff of Sudha (11.5-14.5) % Plt Count (130-400) K/uL MPV (7.4-10.4) fL Immature Gran % (Auto) % Neut % (Auto) % Lymph % (Auto) % [place] % (Auto) % Eos % (Auto) % Baso % (Auto) % Immature Gran # (Auto) (0.00-0.02) K/uL Neut # (Auto) (1.4-6.5) K/uL Lymph # (Auto) (1.2-3.4) K/uL [place] # (Auto) (0.11-0.59) K/uL Eos # (Auto) (0-0.5) K/uL Baso # (Auto) (0-0.2) K/uL ESR 90 H (0-14) mm/hr PT (9.0-12.0) Seconds INR (0.9-1.1) APTT (21.0-31.0) Seconds PTT Ratio VBG pH (7.36-7.41) VBG pCO2 (38-50) mmHg VBG pO2 mmHg VBG HCO3 mmol/L VBG O2 Saturation % VBG Base Excess mEq/L Barometric Pressure mm/Hg Sodium 138 (136-145) mmol/L Potassium 3.2 L (3.5-5.1) mmol/L Chloride 108 H (98-107) mmol/L Carbon Dioxide 19 L (21-32) mmol/L Anion Gap 11.0 (3-11) BUN 35 H (7-18) mg/dl Creatinine 0.71 (0.6-1.4) mg/dl Est Cr Clr Drug Dosing 88.5 ml/min Est GFR ( Amer) 104.2 Est GFR (Non-Af Amer) 89.9 BUN/Creatinine Ratio 49.9 H (10-20) Glucose 132 H (70-99) mg/dl Lactate (0.4-2.0) mmol/L Calcium 10.1 (8.5-10.1) mg/dl Magnesium 2.5 H (1.8-2.4) mg/dl Total Bilirubin 1.5 H (0.2-1) mg/dl AST 27 (15-37) U/L ALT 38 (12-78) U/L Alkaline Phosphatase 220 H (45-117) U/L Troponin I 0.023 (0-0.045) ng/ml C-Reactive Protein 12.10 H (0-0.29) mg/dl Total Protein 7.9 (6.4-8.2) gm/dl Albumin 3.3 L (3.4-5.0) gm/dl Globulin 4.6 H (2.5-4.0) gm/dl Albumin/Globulin Ratio 0.7 L (0.9-2) Procalcitonin 0.36 (0-0.5) ng/ml Urine Color Urine Appearance (Clear) Urine pH (4.5-7.5) Ur Specific [place] (1.000-1.030) Urine Protein (Negative) Urine Glucose (UA) (Negative) Urine Ketones (Negative) Urine Blood (Negative) Urine Nitrite (Negative) Urine Bilirubin (Negative) Urine Urobilinogen (Negative) Ur Leukocyte Esterase (Negative) Urine WBC (Auto) (0-5) /hpf Urine RBC (Auto) (0-4) /hpf U Hyaline Cast (Auto) (0-5) /lpf U Epithel Cells (Auto) (0-5) /lpf Urine Bacteria (Auto) (Negative) 07/17/19 07/17/19 Range/Units 17:48 19:40 WBC (4.8-10.8) K/uL RBC (4.7-6.1) M/uL Hgb (14.0-18.0) g/dL Hct (42-52) % MCV (80-100) fL MCH (25-34) pg MCHC (32-36) g/dL RDW Std Deviation (36.4-46.3) fL RDW Coeff of Sudha (11.5-14.5) % Plt Count (130-400) K/uL MPV (7.4-10.4) fL Immature Gran % (Auto) % Neut % (Auto) % Lymph % (Auto) % [place] % (Auto) % Eos % (Auto) % Baso % (Auto) % Immature Gran # (Auto) (0.00-0.02) K/uL Neut # (Auto) (1.4-6.5) K/uL Lymph # (Auto) (1.2-3.4) K/uL [place] # (Auto) (0.11-0.59) K/uL Eos # (Auto) (0-0.5) K/uL Baso # (Auto) (0-0.2) K/uL ESR (0-14) mm/hr PT (9.0-12.0) Seconds INR (0.9-1.1) APTT (21.0-31.0) Seconds PTT Ratio VBG pH 7.33 L (7.36-7.41) VBG pCO2 42 (38-50) mmHg VBG pO2 38 mmHg VBG HCO3 21 mmol/L VBG O2 Saturation 68.4 % VBG Base Excess -4.6 mEq/L Barometric Pressure 739.8 mm/Hg Sodium (136-145) mmol/L Potassium (3.5-5.1) mmol/L Chloride (98-107) mmol/L Carbon Dioxide (21-32) mmol/L Anion Gap (3-11) BUN (7-18) mg/dl Creatinine (0.6-1.4) mg/dl Est Cr Clr Drug Dosing ml/min Est GFR ( Amer) Est GFR (Non-Af Amer) BUN/Creatinine Ratio (10-20) Glucose (70-99) mg/dl Lactate (0.4-2.0) mmol/L Calcium (8.5-10.1) mg/dl Magnesium (1.8-2.4) mg/dl Total Bilirubin (0.2-1) mg/dl AST (15-37) U/L ALT (12-78) U/L Alkaline Phosphatase (45-117) U/L Troponin I (0-0.045) ng/ml C-Reactive Protein (0-0.29) mg/dl Total Protein (6.4-8.2) gm/dl Albumin (3.4-5.0) gm/dl Globulin (2.5-4.0) gm/dl Albumin/Globulin Ratio (0.9-2) Procalcitonin (0-0.5) ng/ml Urine Color Dark Yellow Urine Appearance Clear (Clear) Urine pH 5.0 (4.5-7.5) Ur Specific [place] 1.025 (1.000-1.030) Urine Protein Trace H (Negative) Urine Glucose (UA) Negative (Negative) Urine Ketones Negative (Negative) Urine Blood Negative (Negative) Urine Nitrite Positive A (Negative) Urine Bilirubin 1+ H (Negative) Urine Urobilinogen Negative (Negative) Ur Leukocyte Esterase Trace H (Negative) Urine WBC (Auto) 1-5 (0-5) /hpf Urine RBC (Auto) 0-4 (0-4) /hpf U Hyaline Cast (Auto) 1-5 (0-5) /lpf U Epithel Cells (Auto) 0-5 (0-5) /lpf Urine Bacteria (Auto) Negative (Negative) Imaging Data Radiologist's Impression: Radiology results as stated below per my review and the radiologist's interpretation: XR chest 1V portable CLINICAL HISTORY: 78 years-old Male presenting with Sepsis. TECHNIQUE: Portable upright AP view of the chest was obtained. COMPARISON: 09/08/2018 and 07/28/2018. FINDINGS: Tracheostomy tube remains in place. Cardiac silhouette mildly prominent. Low lung volumes with elevation of the hemidiaphragm similar to prior. Bibasilar opacities greater on the left. Rounded opacity at the right lung base may be new since 2018. Osteopenia. Posttraumatic deformities of the clavicles. Advanced degenerative changes of the glenohumeral joints and spine. Partially visualized lumbar fusion hardware. Severe distention of the colon, which is at least in part chronic though acute worsening is difficult to exclude. No gross evidence of free intraperitoneal gas. IMPRESSION: 1. Gaseous distention of the colon is at least in part chronic though an acute worsening is difficult to exclude. Correlate with symptomatology and consider abdominal radiograph if appropriate. 2. Rounded opacity at the right lung base could represent vascularity, however, this was not apparent in 2018 and raises concern for a focal pulmonary nodule. Dedicated chest CT is recommended. 3. Bibasilar atelectasis with low lung volumes. The report will be called/faxed according to standard departmental protocol. Electronically signed by: Jt Davidson M.D. 07/17/2019 5:[address] angio chest PE protocol, CT abd pelvis IV con only CT DOSE: 1075.56 mGy.cm HISTORY: 78 years-old Male with PE. Acute shortness of breath with abdominal distention and acute generalized abdominal pain TECHNIQUE: Multiple CTA images of the chest were obtained after the intravenous administration of 116 ml Optiray 320. Coronal and sagittal MIPS were obtained from the axial data set and were submitted for review. All measurements were obtained according to NASCET criteria. CT abdomen and pelvis with IV contrast also obtained. A dose lowering technique was utilized adhering to the principles of ALARA. COMPARISON: CTA of the chest 07/28/2018 FINDINGS: CTA: Mild cardiomegaly with coronary arterial calcifications. No pericardial effusion. No thoracic aortic aneurysm or dissection. Mild to moderate mixed plaque of the thoracic aorta. Patency of the imaged great vessels. The pulmonary arterial tree is opacified to the level of the subsegmental branches and demonstrates no focal filling defects to suggest pulmonary thromboembolic disease. CT CHEST: Unremarkable thyroid. Tracheostomy cannula terminates several centimeters above the rabia within the trachea. No adenopathy. Trace pleural effusions with dependent bibasilar consolidation. No pneumothorax. 1.5 x 1.1 x 1.4 cm groundglass nodular opacity of the apical segment right upper lobe, image 181 series 4 with mild adjacent linear subsegmental atelectasis/scarring. This previously measured approximately 1.3 x 0.9 cm on study from 07/28/2018. There is no overt pulmonary edema. 5 mm nodular opacity of the right upper lobe is noted on image 122 series 4. No additional suspicious pulmonary nodules identified. Soft tissues of the chest are unremarkable. 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 Healed remote right clavicular fracture. CT ABDOMEN/PELVIS: No pneumatosis or pneumoperitoneum. The spleen, adrenal glands, pancreas and l iver are unremarkable. Indeterminate 6 mm hypodense lesion of the right hepatic lobe, likely benign. Moderate gallbladder distention. No cholelithiasis or gallbladder wall thickening. No significant biliary ductal dilation. There are a few cysts noted about the bilateral kidneys. There are a few no nobstructing calculi of the bilateral kidneys measuring up to 7 mm within the interpolar right kidney. No ureteral calculi or obstructive uropathy. Prostamegaly with moderate to marked urinary bladder distention. Calcified plaque of the abdominal aorta without aneurysm. Unremarkable IVC. Gastrostomy tube appears to be in satisfactory positioning. Layering hyperdense material noted within the sigmoid colon. The sigmoid colon is markedly distended and air-filled measuring up to 10.3 cm. There is twisting of the abdominal right lower quadrant mesentery, image 316 of series 6 which involves a portion of the tortuous sigmoid colon and transverse colon. Cecum is nondilated within the abdominal right lower quadrant. Fluid-filled loops of bowel are seen within the lower abdomen. Soft tissues are unremarkable. Demineralized appearance of the bones. Postsurgical changes of the lower lumbar spine. IMPRESSION: 1. No evidence of pulmonary thromboembolic disease. 2. Trace pleural effusions with bibasilar dependent consolidation suggests compressive atelectasis. Correlate clinically to exclude pneumonia. 3. 1.5 cm groundglass nodule of the apical segment right upper lobe is redemonstrated and is suspicious for a low-grade neoplasm along the adenocarcinoma spectrum. 4. Marked gaseous distention of the large bowel with twisting of the abdominal right lower quadrant mesentery resulting in obstruction. Findings are suggestive of an internal hernia/sigmoid volvulus. No pneumatosis or pneumoperitoneum. 5. Nonobstructing bilateral nephrolithiasis. 6. Additional findings as above. Findings discussed with Dr. Pitts on 07/17/2019 at 7:40 PM The above report was generated using voice recognition software. It may contain grammatical, syntax or spelling errors. Electronically signed by: Bebeto Fountain M.D. 07/17/2019 7:[address] angio chest PE protocol, CT abd pelvis IV con only CT DOSE: 1075.56 mGy.cm HISTORY: 78 years-old Male with PE. Acute shortness of breath with abdominal distention and acute generalized abdominal pain TECHNIQUE: Multiple CTA images of the chest were obtained after the intravenous administration of 116 ml Optiray 320. Coronal and sagittal MIPS were obtained from the axial data set and were submitted for review. All measurements were obtained according to NASCET criteria. CT abdomen and pelvis with IV contrast also obtained. A dose lowering technique was utilized adhering to the principles of ALARA. COMPARISON: CTA of the chest 07/28/2018 FINDINGS: CTA: Mild cardiomegaly with coronary arterial calcifications. No pericardial effusion. No thoracic aortic aneurysm or dissection. Mild to moderate mixed plaque of the thoracic aorta. Patency of the imaged great vessels. The pulmonary arterial tree is opacified to the level of the subsegmental branches and demonstrates no focal filling defects to suggest pulmonary thromboembolic disease. CT CHEST: Unremarkable thyroid. Tracheostomy cannula terminates several centimeters above the rabia within the trachea. No adenopathy. Trace pleural effusions with dependent bibasilar consolidation. No pneumothorax. 1.5 x 1.1 x 1.4 cm groundglass nodular opacity of the apical segment right upper lobe, image 181 series 4 with mild adjacent linear subsegmental atelectasis/scarring. This previously measured approximately 1.3 x 0.9 cm on study from 07/28/2018. There is no overt pulmonary edema. 5 mm nodular opacity of the right upper lobe is noted on image 122 series 4. No additional suspicious pulmonary nodules identified. Soft tissues of the chest are unremarkable. 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 Healed remote right clavicular fracture. CT ABDOMEN/PELVIS: No pneumatosis or pneumoperitoneum. The spleen, adrenal glands, pancreas and liver are unremarkable. Indeterminate 6 mm hypodense lesion of the right hepatic lobe, likely benign. Moderate gallbladder distention. No cholelithiasis or gallbladder wall thickening. No significant biliary ductal dilation. There are a few cysts noted about the bilateral kidneys. There are a few nonobstructing calculi of the bilateral kidneys measuring up to 7 mm within the interpolar right kidney. No ureteral calculi or obstructive uropathy. Prostamegaly with moderate to marked urinary bladder distention. Calcified plaque of the abdominal aorta without aneurysm. Unremarkable IVC. Gastrostomy tube appears to be in satisfactory positioning. Layering hyperdense material noted within the sigmoid colon. The sigmoid colon is markedly distended and air-filled measuring up to 10.3 cm. There is twisting of the abdominal right lower quadrant mesentery, image 316 of series 6 which involves a portion of the tortuous sigmoid colon and transverse colon. Cecum is nondilated within the abdominal right lower quadrant. Fluid-filled loops of bowel are seen within the lower abdomen. Soft tissues are unremarkable. Demineralized appearance of the bones. Postsurgical changes of the lower lumbar spine. IMPRESSION: 1. No evidence of pulmonary thromboembolic disease. 2. Trace pleural effusions with bibasilar dependent consolidation suggests compressive atelectasis. Correlate clinically to exclude pneumonia. 3. 1.5 cm groundglass nodule of the apical segment right upper lobe is redemonstrated and is suspicious for a low-grade neoplasm along the adenocarcinoma spectrum. 4. Marked gaseous distention of the large bowel with twisting of the abdominal right lower quadrant mesentery resulting in obstruction. Findings are suggestive of an internal hernia/sigmoid volvulus. No pneumatosis or pneumoperitoneum. 5. Nonobstructing bilateral nephrolithiasis. 6. Additional findings as above. Findings discussed with Dr. Pitts on 07/17/2019 at 7:40 PM The above report was generated using voice recognition software. It may contain grammatical, syntax or spelling errors. Electronically signed by: Bebeto Fountain M.D. 07/17/2019 7:48 PM ECG Data Attestation: I personally reviewed and interpreted this ECG as follows: Indication: + SOB/dyspnea Rate (beats per minute): 113 Rhythm: + sinus tachycardia ECG Findings: + Other (diffuse ST segment abnormalities noted ); no PACs and no PVCs Comparison ECG Date: from (07/09/19) Change: no significant change Blood Pressure Blood Pressure Findings: Low blood pressure Blood Pressure Disposition: further management by hospitalist WOO Jones The patient is a 78-year-old male who presented to the emergency department for an evaluation of difficulty breathing. 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 He was febrile and appeared to have significant difficulty breathing. He did not have significant increase in sputum production. The patient also had very distended abdomen on physical exam. Chest x-ray revealed dilated loops of bowel underneath the diaphragm. For this reason further radiographic studies were obtained including CT the chest abdomen and pelvis. I discussed the patient's laboratory and radiographic studies with him and his family members. He was found to have signs of a sigmoid volvulus with resultant small bowel obstruction. He was treated with IV antibiotics and IV fluids. On subsequent reevaluation he was somewhat improved. Given his findings on CAT scan I discussed his case with the on-call cake stripper as well as the on- call general surgeon. They evaluated the patient in the emergency department and discussed different options with the family members. At this time they are very reluctant to have any surgical intervention on the patient at this time. It appears the patient was previously a DNR because of his ALS. Given the patient's wishes I discussed his case with the on-call [facility] hospitalist. They have agreed to evaluate the patient in the emergency department for further management disposition. Given the patient's findings on CAT scan lack of surgical or endoscopic intervention may result in sepsis. I discussed this with the family members. They are aware of how critical their family member is at this time. He was resting comfortably on my evaluation. Discharge Problem: Fever Qualifiers: Fever type: unspecified Qualified Code(s): R50.9 - Fever, unspecified Hypotension Qualifiers: Hypotension type: unspecified hypotension type Qualified Code(s): I95.9 - Hypotension, unspecified The scribe's documentation has been prepared under my direction and personally reviewed by me in its entirety. I confirm that the note above accurately reflects all work, treatment, procedures, and medical decision making performed by me.
--- NOTE | 2019-07-17 17:38 | XRay Report ---
XR chest 1V portable CLINICAL HISTORY: 78 years-old Male presenting with Sepsis. TECHNIQUE: Portable upright AP view of the chest was obtained. COMPARISON: 09/08/2018 and 07/28/2018. FINDINGS: Tracheostomy tube remains in place. Cardiac silhouette mildly prominent. Low lung volumes with elevat ion of the hemidiaphragm similar to prior. Bibasilar opacities greater on the left. Rounded opacity a t the right lung base may be new since 2018. Osteopenia. Posttraumatic deformities of the clavicles. Advanced degenerative changes of the glenohumeral joints and spine. Partially visualized lumbar fusio n hardware. Severe distention of the colon, which is at least in part chronic though acute worsening is difficult to exclude. No gross evidence of free intraperitoneal gas. IMPRESSION: 1. Gaseous distention of the colon is at least in part chronic though an acute worsening is difficul t to exclude. Correlate with symptomatology and consider abdominal radiograph if appropriate. 2. Rounded opacity at the right lung base could represent vascularity, however, this was not apparen t in 2018 and raises concern for a focal pulmonary nodule. Dedicated chest CT is recommended. 3. Bibasilar atelectasis with low lung volumes. The report will be called/faxed according to standard departmental protocol. Electronically signed by: Jt Davidson M.D. 07/17/2019 5:36 PM
[2019-07-17 18:07] LABS: Hemoglobin 11.7 g/dL (14.0-18.0); Immature Granulocytes # (auto) 0.02 K/uL (0.00-0.02); Immature Granulocytes % (auto) 0.7 %; Lymphocytes # (auto) 0.28 K/uL (1.2-3.4); Lymphocytes % (auto) 9.2 %; Mean Corpuscular Hemoglobin 32.6 pg (25-34); Mean Corpuscular Hgb Conc 33.4 g/dL (32-36); Mean Corpuscular Volume 97.5 fL (80-100); Mean Platelet Volume 10.8 fL (7.4-10.4); Monocytes # (auto) 0.85 K/uL (0.11-0.59); Neutrophils # (auto) 1.89 K/uL (1.4-6.5); Neutrophils % (auto) 62.1 %; Platelet Count 310 K/uL (130-400); RDW Coefficient of Variation 14.6 % (11.5-14.5); RDW Standard Deviation 52.3 fL (36.4-46.3); Red Blood Count 3.59 M/uL (4.7-6.1); White Blood Count 3.04 K/uL (4.8-10.8)
[2019-07-17 18:18] LABS: INR 1.1 (0.9-1.1); Partial Thromboplastin Ratio 1.3; Partial Thromboplastin Time 36.5 Seconds (21.0-31.0); Prothrombin Time 11.6 Seconds (9.0-12.0)
[2019-07-17 18:32] LABS: Albumin Level 3.3 gm/dl (3.4-5.0); BUN Creatinine Ratio 49.9 (10-20); C Reactive Protein 12.1 mg/dl (0-0.29); Calcium 10.1 mg/dl (8.5-10.1); Creatinine Clr Calc Pharmacy 88.5 ml/min; Est GFR (African American) 104.2; Est GFR (Non-African American) 89.9; Magnesium 2.5 mg/dl (1.8-2.4); Potassium 3.2 mmol/L (3.5-5.1)
[2019-07-17 18:34] LABS: Base Excess VBG -4.6 mEq/L; Oxygen Saturation VBG 68.4 %; pH VBG 7.33 (7.36-7.41)
[2019-07-17 18:36] LABS: Albumin Globulin Ratio 0.7 (0.9-2); Bilirubin,Total 1.5 mg/dl (0.2-1); Globulin 4.6 gm/dl (2.5-4.0); Total Protein 7.9 gm/dl (6.4-8.2); Troponin I 0.023 ng/ml (0-0.045)
[2019-07-17] MEDS ORDERED: OPTIRAY 320 125ml IV PRN (19:09)
[2019-07-17] MEDS ORDERED: PIPERACILL/TAZOBAC CONSULT ACTIVE PRN (19:20)
[2019-07-17] MEDS ORDERED: PIPERACILLIN/TAZOBACTAM 4.5 GM/120 ML BAG IV ONE (19:20)
--- NOTE | 2019-07-17 19:49 | CT Scan Report ---
CT angio chest PE protocol, CT abd pelvis IV con only CT DOSE: 1075.56 mGy.cm HISTORY: 78 years-old Male with PE. Acute shortness of breath with abdominal distention and acute g eneralized abdominal pain TECHNIQUE: Multiple CTA images of the chest were obtained after the intravenous administration of 116 ml Optiray 320. Coronal and sagittal MIPS were obtained from the axial data set and were submitted for review. All measurements were obtained according to NASCET criteria. CT abdomen and pelvis with IV contrast also obtained. A dose lowering technique was utilized adhering to the principles of ALARA . COMPARISON: CTA of the chest 07/28/2018 FINDINGS: CTA: Mild cardiomegaly with coronary arterial calcifications. No pericardial effusion. No thoracic aortic aneurysm or dissection. Mild to moderate mixed plaque of the thoracic aorta. Patency of the imaged gr eat vessels. The pulmonary arterial tree is opacified to the level of the subsegmental branches and d emonstrates no focal filling defects to suggest pulmonary thromboembolic disease. CT CHEST: Unremarkable thyroid. Tracheostomy cannula terminates several centimeters above the rabia within the trachea. No adenopathy. Trace pleural effusions with dependent bibasilar consolidation. No pneumotho rax. 1.5 x 1.1 x 1.4 cm groundglass nodular opacity of the apical segment right upper lobe, image 181 series 4 with mild adjacent linear subsegmental atelectasis/scarring. This previously measured appro ximately 1.3 x 0.9 cm on study from 07/28/2018. There is no overt pulmonary edema. 5 mm nodular opaci ty of the right upper lobe is noted on image 122 series 4. No additional suspicious pulmonary nodules identified. Soft tissues of the chest are unremarkable. 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 Healed remote right cla vicular fracture. CT ABDOMEN/PELVIS: No pneumatosis or pneumoperitoneum. The spleen, adrenal glands, pancreas and liver are unremarkable. Indeterminate 6 mm hypodense lesion of the right hepatic lobe, likely benign. Moderate gallbladder di stention. No cholelithiasis or gallbladder wall thickening. No significant biliary ductal dilation. There are a few cysts noted about the bilateral kidneys. There are a few nonobstructing calculi of th e bilateral kidneys measuring up to 7 mm within the interpolar right kidney. No ureteral calculi or o bstructive uropathy. Prostamegaly with moderate to marked urinary bladder distention. Calcified plaqu e of the abdominal aorta without aneurysm. Unremarkable IVC. Gastrostomy tube appears to be in satisfactory positioning. Layering hyperdense material noted within the sigmoid colon. The sigmoid colon is markedly distended and air-filled measuring up to 10.3 cm. T here is twisting of the abdominal right lower quadrant mesentery, image 316 of series 6 which involve s a portion of the tortuous sigmoid colon and transverse colon. Cecum is nondilated within the abdomi nal right lower quadrant. Fluid-filled loops of bowel are seen within the lower abdomen. Soft tissues are unremarkable. Demineralized appearance of the bones. Postsurgical changes of the lower lumbar sp ine. IMPRESSION: 1. No evidence of pulmonary thromboembolic disease. 2. Trace pleural effusions with bibasilar dependent consolidation suggests compressive atelectasis. C orrelate clinically to exclude pneumonia. 3. 1.5 cm groundglass nodule of the apical segment right upper lobe is redemonstrated and is suspicio us for a low-grade neoplasm along the adenocarcinoma spectrum. 4. Marked gaseous distention of the large bowel with twisting of the abdominal right lower quadrant m esentery resulting in obstruction. Findings are suggestive of an internal hernia/sigmoid volvulus. No pneumatosis or pneumoperitoneum. 5. Nonobstructing bilateral nephrolithiasis. 6. Additional findings as above. Findings discussed with Dr. Pitts on 07/17/2019 at 7:40 PM The above report was generated using voice recognition software. It may contain grammatical, syntax o r spelling errors. Electronically signed by: Bebeto Fountain M.D. 07/17/2019 7:48 PM
[2019-07-17 20:05] LABS: Appearance Urine Clear (Clear); Bacteria Urine Automated Negative (Negative); Bilirubin Urine 1+ (Negative); Blood Urine Negative (Negative); Color Urine Dark Yellow; Epithelial Cell Urine Auto 0-5 /lpf (0-5); Glucose Urine UA Negative (Negative); Ketones Urine Negative (Negative); Leukocyte Esterase Urine Trace (Negative); Nitrite Urine Positive (Negative); Protein Urine Trace (Negative); RBC Urine Automated 0-4 /hpf (0-4); Specific Gravity Urine 1.025 (1.000-1.030); Urobilinogen Urine Negative (Negative)
[2019-07-17 20:06] LABS: Ictotest Urine Positive (Negative)
--- NOTE | 2019-07-17 21:29 | Gastrointestinal Consultation ---
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 We carefully reviewed his images as well as a history with the family, I think this likely represents neurogenic bowel, it is not entirely characteristic after review with radiology that this is a sigmoid volvulus. The concern that I rela yed to the family is that if this is an internal hernia, endoscopic reduction could be complicated by perforation. The family when told these options in regards to endoscopy and the risk, as well as that this would only be a bridge to a more permanent or definitive therapy i.e. surgery, they related to us that they do not want any invasive procedures or surgery. Especially, in the light that this is been resolved on its own in the past. They stated that they would consider transfer to [facility] and/or admission here with a palliative approach. Given their wishes that they clearly understand with the daughter who is a nurse, clearly understood the risk and benefits of waiting or not having acute intervention. They also understood that endoscopy in this scenario with a questionable hernia could be a high risk endeavor. They are requesting observation at this time and likely palliation and hospice care, relayed those wants and desires to Dr. Pitts for disposition. Please call with any questions concerns, and thank you for the consultation. History of Present Illness Reason for Consultation: Abnormal CT abdominal distention History of Present Illness This is a 78-year-old gentleman who is unfortunately been diagnosed with ALS for just over one year, who presents to the emergency room today with complaints of altered mental status lethargy, restlessness, and shortness of breath. 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 His family noted that he had a fall last Monday, and since that time he has not been himself, they have noticed that he has been more lethargic, more fatigued, and less interactive. They state that he seemed to have an increased work of breathing today and thus they brought him to the emergency room. Upon evaluation here chest x-ray showed distended loops of bowel which prompted a CT scan, on the CT scan there was discussion of possible internal hernia or sigmoid volvulus. The family states that his abdomen about every week or every other week becomes distended as it is today, they hold his feeds for 18 to 24 hours and usually it self resolves. This is been an ongoing issue since his nearly 80-day hospital stay from 2018 and to early 2018 at [facility] at which time his ALS diagnosis was made. He was treated conservatively at [facility] during this period of time, without intervention. His family states that he has been having some loose bowel movements he has not complained of any abdominal pain, he is intermittently able to communicate with the family. They reiterated multiple times during interview that this is not what he wanted, and they would have never placed him on life- sustaining support had a known that this was a terminal illness as opposed to a reversible one. I discussed the case in person and saw him in the company with Dr. Villar of general surgery, and we individually and together reviewed his imaging with radiology. The family reiterated during her interview that they did not want any invasive procedures being performed to whether the be endoscopy and/or surgery. medical history significant for ALS Placement of a PEG tube complicated by hemorrhagic shock necessitating a repeat laparoscopy. Chronic home ventilator Tracheostomy Surgical history significant for PEG tube, trach, laparoscopy for intra- abdominal bleed Allergies Allergy/AdvReac Type Severity Reaction Status Date / Time No Known Allergies Allergy NKA Verified 07/17/19 19:29 Home Medications Home Medications Medication Instructions Recorded Confirmed Type acetaminophen 500 mg/15 mL oral 500 - 1,000 mg FEEDING TUBE Q6 PRN 04/26/19 07/17/19 History liquid ml albuterol sulfate 90 mcg/actuation 2 puffs INHALATION Q6 PRN gm 04/26/19 07/17/19 History aerosol inhaler lorazepam 0.5 mg tablet 0.5 mg FEEDING TUBE TID PRN tab 04/26/19 07/17/19 History potassium chloride 20 mEq/15 mL 20 meq FEEDING TUBE DAILY ml 04/26/19 07/17/19 History oral liquid simethicone 80 mg chewable tablet 80 mg FEEDING TUBE BID tab 04/26/19 07/17/19 History sodium chloride 3 % for 0 ml INHALATION Q6 PRN ml 04/26/19 07/17/19 History nebulization trazodone 50 mg tablet 25 mg FEEDING TUBE HS tab 04/26/19 07/17/19 History Atropine/Diphen. 0.025/2.5mg 1 dose FEEDING TUBE QAM 07/17/19 07/17/19 History Atropine/Diphenoxy 0.025/2.5mg 0 mg FEEDING TUBE TID PRN 07/17/19 07/17/19 History Guaifenesin 200mg (10 Ml) 1 dose FEEDING TUBE BID 07/17/19 07/17/19 History Scopolamine Patch 33mg/24hr 1 patch TOPICAL UD 07/17/19 07/17/19 History acetaminophen [Tylenol Extra 500 mg FEEDING TUBE HS 07/17/19 07/17/19 History Strength] gabapentin [Neurontin] 250 mg FEEDING TUBE HS 07/17/19 07/17/19 History glycopyrrolate 1 mg FEEDING TUBE BID 07/17/19 07/17/19 History lansoprazole 30 mg FEEDING TUBE UD 07/17/19 07/17/19 History loperamide 2 mg FEEDING TUBE BID 07/17/19 07/17/19 History loperamide 2 mg PO .Q2HR PRN 07/17/19 07/17/19 History lorazepam 0.5 mg FEEDING TUBE HS 07/17/19 07/17/19 History nutritional supplements [Osmolite 0 ea FEEDING TUBE UD 07/17/19 07/17/19 History 1.5 Jas] riluzole 50 mg FEEDING TUBE Q12H 07/17/19 07/17/19 History sertraline 100 mg PO DAILY 07/17/19 07/17/19 History simethicone 80 mg FEEDING TUBE TID PRN 07/17/19 07/17/19 History Patient History Social History marital status: Current Living Situation: Family current occupational status: retired Feels Safe at Home: Yes Smoking Status: Never smoker Hx Alcohol Use: No Hx Substance Use: No Review of Systems Review of Systems: Unobtainable due to cognitive status Physical Exam Physical Exam: Clammy appearing, comfortable not restless in bed Heart is regular Lungs are clear Abdomen is distended but soft, hypoactive bowel sounds, nontender to palpation tympanitic to percussion No peripheral edema G tube in place Tracheostomy in place Results & Data Vital Signs (Past 12 Hours) Vital Signs Temp Pulse Resp BP Pulse Ox 07/17/19 20:46 83 13 97 07/17/19 20:45 83 12 85/56 L 97 07/17/19 20:40 83 13 83/55 L 95 07/17/19 20:32 83 13 96 07/17/19 20:31 83 15 83/53 L 96 07/17/19 20:30 83 13 75/54 L 96 07/17/19 20:15 85 13 96 07/17/19 20:03 89 16 85/53 L 96 07/17/19 20:01 88 13 95 07/17/19 20:00 87 12 71/53 L 95 07/17/19 19:46 17 07/17/19 19:45 95 H 14 95 07/17/19 19:31 93 H 16 95 07/17/19 19:30 94 H 17 90/60 L 95 07/17/19 19:21 96 H 18 97/67 L 95 07/17/19 18:45 37.2 C 104 H 17 94 07/17/19 18:31 103 H 15 93 07/17/19 18:30 103 H 14 107/53 L 93 07/17/19 18:15 109 H 15 92 07/17/19 18:01 110 H 21 92 07/17/19 18:00 110 H 15 102/64 93 07/17/19 17:45 112 H 22 92 07/17/19 17:31 113 H 17 91 07/17/19 17:30 113 H 16 111/66 91 07/17/19 17:17 89 L 07/17/19 17:15 116 H 18 87 L 07/17/19 17:11 39.4 C H 115 H 20 104/66 89 L 07/17/19 17:09 115 H 17 87 L 07/17/19 17:06 116 H 19 104/66 88 L
--- NOTE | 2019-07-17 21:34 | Surgery Consultation ---
Date of Consultation July 17, 2019 Assessment & Plan (1) Sigmoid volvulus: 78-year-old male with advanced ALS with history of intermittent gastric distention, now with sigmoid volvulus versus internal hernia versus neurogenic bowel. Dr. Alexander and I had a long discussion with the patient's family. We discussed the options to include colonoscopic decompression versus surgical management, as well as transfer to a tertiary center and observation/palliation. The family does not wish to have any type of surgical intervention. They are leaning towards admission with observation and noninvasive interventions. We also offered palliative care and social work consults to establish goals of care and home hospice if possible. Recommend admission to medicine for observation Possible palliative care consult in the morning along with social work consult Consider home hospice No surgical intervention desired Please call with questions or concerns The diagnosis, treatment options, plan of care discussed with the patient's family, GI, and the emergency department, all questions were answered, and the patient's family agreed with plan of care as stated. Present on Admission?: Yes (2) Amyotrophic lateral sclerosis (ALS): Present on Admission?: Yes History of Present Illness History of Present Illness 78-year-old male with ALS presented to the emergency department with lethargy and increased abdominal distention. 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 Per the family he spent 2 to 3 months there and had a tracheostomy and gastrostomy tube placed. He had significant abdominal distention at the time. He is never truly tolerated his tube feeds. He apparently has intermittent episodes of abdominal distention that resolved on their own. Per the family this occurred at [place] as well and they managed nonoperatively. He had a CT scan performed which showed significantly dilated bladder and colon. There was concern of a sigmoid volvulus versus an internal hernia. Dr. Alexander was consulted for possible colonoscopic decompression, but due to the concern for internal hernia he asked for general surgery opinion as well. Allergies Allergy/AdvReac Type Severity Reaction Status Date / Time No Known Allergies Allergy NKA Verified 07/17/19 19:29 Home Medications Home Medications Medication Instructions Recorded Confirmed Type acetaminophen 500 mg/15 mL oral 500 - 1,000 mg FEEDING TUBE Q6 PRN 04/26/19 07/17/19 History liquid ml albuterol sulfate 90 mcg/actuation 2 puffs INHALATION Q6 PRN gm 04/26/19 07/17/19 History aerosol inhaler lorazepam 0.5 mg tablet 0.5 mg FEEDING TUBE TID PRN tab 04/26/19 07/17/19 History potassium chloride 20 mEq/15 mL 20 meq FEEDING TUBE DAILY ml 04/26/19 07/17/19 History oral liquid simethicone 80 mg chewable tablet 80 mg FEEDING TUBE BID tab 04/26/19 07/17/19 History sodium chloride 3 % for 0 ml INHALATION Q6 PRN ml 04/26/19 07/17/19 History nebulization trazodone 50 mg tablet 25 mg FEEDING TUBE HS tab 04/26/19 07/17/19 History Atropine/Diphen. 0.025/2.5mg 1 dose FEEDING TUBE QAM 07/17/19 07/17/19 History Atropine/Diphenoxy 0.025/2.5mg 0 mg FEEDING TUBE TID PRN 07/17/19 07/17/19 History Guaifenesin 200mg (10 Ml) 1 dose FEEDING TUBE BID 07/17/19 07/17/19 History Scopolamine Patch 33mg/24hr 1 patch TOPICAL UD 07/17/19 07/17/19 History acetaminophen [Tylenol Extra 500 mg FEEDING TUBE HS 07/17/19 07/17/19 History Strength] gabapentin [Neurontin] 250 mg FEEDING TUBE HS 07/17/19 07/17/19 History glycopyrrolate 1 mg FEEDING TUBE BID 07/17/19 07/17/19 History lansoprazole 30 mg FEEDING TUBE UD 07/17/19 07/17/19 History loperamide 2 mg FEEDING TUBE BID 07/17/19 07/17/19 History loperamide 2 mg PO .Q2HR PRN 07/17/19 07/17/19 History lorazepam 0.5 mg FEEDING TUBE HS 07/17/19 07/17/19 History nutritional supplements [Osmolite 0 ea FEEDING TUBE UD 07/17/19 07/17/19 History 1.5 Jas] riluzole 50 mg FEEDING TUBE Q12H 07/17/19 07/17/19 History sertraline 100 mg PO DAILY 07/17/19 07/17/19 History simethicone 80 mg FEEDING TUBE TID PRN 07/17/19 07/17/19 History Patient History Social History marital status: Current Living Situation: Family current occupational status: retired Feels Safe at Home: Yes Smoking Status: Never smoker Hx Alcohol Use: No Hx Substance Use: No Physical Exam Constitutional: + thin, + lethargic and + mechanically ventilated Eyes: PERRL, conjunctivae normal, anicteric sclerae ENMT: external ear and nose normal, oropharynx normal Neck: trachea midline, no thyromegaly + tracheostomy present Respiratory: Auscultation: + crackles (Bilateral) Cardiovascular: Rate/Rhythm: regular rhythm and + tachycardic Gastrointestinal (Abdomen): Inspection/Auscultation: + abdomen distended (Significant distention and tympanitic to percussion) and + abdominal surgical scar (Midline laparotomy scar) Percussion/Palpation: + abdomen tender (Mild diffuse tenderness to palpation) and abdomen soft; no guarding and abdomen not rigid Results & Data Vital Signs (Past 12 Hours) Vital Signs Temp Pulse Resp BP Pulse Ox 07/17/19 20:46 83 13 97 07/17/19 20:45 83 12 85/56 L 97 07/17/19 20:40 83 13 83/55 L 95 07/17/19 20:32 83 13 96 07/17/19 20:31 83 15 83/53 L 96 07/17/19 20:30 83 13 75/54 L 96 07/17/19 20:15 85 13 96 07/17/19 20:03 89 16 85/53 L 96 07/17/19 20:01 88 13 95 07/17/19 20:00 87 12 71/53 L 95 07/17/19 19:46 17 07/17/19 19:45 95 H 14 95 07/17/19 19:31 93 H 16 95 07/17/19 19:30 94 H 17 90/60 L 95 07/17/19 19:21 96 H 18 97/67 L 95 07/17/19 18:45 37.2 C 104 H 17 94 07/17/19 18:31 103 H 15 93 07/17/19 18:30 103 H 14 107/53 L 93 07/17/19 18:15 109 H 15 92 07/17/19 18:01 110 H 21 92 07/17/19 18:00 110 H 15 102/64 93 07/17/19 17:45 112 H 22 92 07/17/19 17:31 113 H 17 91 07/17/19 17:30 113 H 16 111/66 91 07/17/19 17:17 89 L 07/17/19 17:15 116 H 18 87 L 07/17/19 17:11 39.4 C H 115 H 20 104/66 89 L 07/17/19 17:09 115 H 17 87 L 07/17/19 17:06 116 H 19 104/66 88 L Laboratory Results Laboratory Results - last 24 hr 07/17/19 07/17/19 07/17/19 17:48 17:48 17:48 WBC 3.04 L RBC 3.59 L Hgb 11.7 L Hct 35.0 L MCV 97.5 MCH 32.6 MCHC 33.4 RDW Std Deviation 52.3 H RDW Coeff of Sudha 14.6 H Plt Count 310 MPV 10.8 H Immature Gran % (Auto) 0.7 Neut % (Auto) 62.1 Lymph % (Auto) 9.2 Bulloch % (Auto) 28.0 Eos % (Auto) 0.0 Baso % (Auto) 0.0 Immature Gran # (Auto) 0.02 Neut # (Auto) 1.89 Lymph # (Auto) 0.28 L Bulloch # (Auto) 0.85 H Eos # (Auto) 0.00 Baso # (Auto) 0.00 ESR PT 11.6 INR 1.1 APTT 36.5 H PTT Ratio 1.3 VBG pH VBG pCO2 VBG pO2 VBG HCO3 VBG O2 Saturation VBG Base Excess Barometric Pressure Sodium Potassium Chloride Carbon Dioxide Anion Gap BUN Creatinine Est Cr Clr Drug Dosing Est GFR ( Amer) Est GFR (Non-Af Amer) BUN/Creatinine Ratio Glucose Lactate 1.4 Calcium Magnesium Total Bilirubin AST ALT Alkaline Phosphatase Troponin I C-Reactive Protein Total Protein Albumin Globulin Albumin/Globulin Ratio Procalcitonin Urine Color Urine Appearance Urine pH Ur Specific [place] Urine Protein Urine Glucose (UA) Urine Ketones Urine Blood Urine Nitrite Urine Bilirubin Urine Urobilinogen Ur Leukocyte Esterase Urine WBC (Auto) Urine RBC (Auto) U Hyaline Cast (Auto) U Epithel Cells (Auto) Urine Bacteria (Auto) 07/17/19 07/17/19 07/17/19 17:48 17:48 17:48 WBC RBC Hgb Hct MCV MCH MCHC RDW Std Deviation RDW Coeff of Sudha Plt Count MPV Immature Gran % (Auto) Neut % (Auto) Lymph % (Auto) Bulloch % (Auto) Eos % (Auto) Baso % (Auto) Immature Gran # (Auto) Neut # (Auto) Lymph # (Auto) Bulloch # (Auto) Eos # (Auto) Baso # (Auto) ESR 90 H PT INR APTT PTT Ratio VBG pH VBG pCO2 VBG pO2 VBG HCO3 VBG O2 Saturation VBG Base Excess Barometric Pressure Sodium 138 Potassium 3.2 L Chloride 108 H Carbon Dioxide 19 L Anion Gap 11.0 BUN 35 H Creatinine 0.71 Est Cr Clr Drug Dosing 88.5 Est GFR ( Amer) 104.2 Est GFR (Non-Af Amer) 89.9 BUN/Creatinine Ratio 49.9 H Glucose 132 H Lactate Calcium 10.1 Magnesium 2.5 H Total Bilirubin 1.5 H AST 27 ALT 38 Alkaline Phosphatase 220 H Troponin I 0.023 C-Reactive Protein 12.10 H Total Protein 7.9 Albumin 3.3 L Globulin 4.6 H Albumin/Globulin Ratio 0.7 L Procalcitonin 0.36 Urine Color Urine Appearance Urine pH Ur Specific [place] Urine Protein Urine Glucose (UA) Urine Ketones Urine Blood Urine Nitrite Urine Bilirubin Urine Urobilinogen Ur Leukocyte Esterase Urine WBC (Auto) Urine RBC (Auto) U Hyaline Cast (Auto) U Epithel Cells (Auto) Urine Bacteria (Auto) 07/17/19 07/17/19 17:48 19:40 WBC RBC Hgb Hct MCV MCH MCHC RDW Std Deviation RDW Coeff of Sudha Plt Count MPV Immature Gran % (Auto) Neut % (Auto) Lymph % (Auto) Bulloch % (Auto) Eos % (Auto) Baso % (Auto) Immature Gran # (Auto) Neut # (Auto) Lymph # (Auto) Bulloch # (Auto) Eos # (Auto) Baso # (Auto) ESR PT INR APTT PTT Ratio VBG pH 7.33 L VBG pCO2 42 VBG pO2 38 VBG HCO3 21 VBG O2 Saturation 68.4 VBG Base Excess -4.6 Barometric Pressure 739.8 Sodium Potassium Chloride Carbon Dioxide Anion Gap BUN Creatinine Est Cr Clr Drug Dosing Est GFR ( Amer) Est GFR (Non-Af Amer) BUN/Creatinine Ratio Glucose Lactate Calcium Magnesium Total Bilirubin AST ALT Alkaline Phosphatase Troponin I C-Reactive Protein Total Protein Albumin Globulin Albumin/Globulin Ratio Procalcitonin Urine Color Dark Yellow Urine Appearance Clear Urine pH 5.0 Ur Specific [place] 1.025 Urine Protein Trace H Urine Glucose (UA) Negative Urine Ketones Negative Urine Blood Negative Urine Nitrite Positive A Urine Bilirubin 1+ H Urine Urobilinogen Negative Ur Leukocyte Esterase Trace H Urine WBC (Auto) 1-5 Urine RBC (Auto) 0-4 U Hyaline Cast (Auto) 1-5 U Epithel Cells (Auto) 0-5 Urine Bacteria (Auto) Negative Diagnostic Findings CT angio chest PE protocol, CT abd pelvis IV con only CT DOSE: 1075.56 mGy.cm HISTORY: 78 years-old Male with PE. Acute shortness of breath with abdominal distention and acute generalized abdominal pain TECHNIQUE: Multiple CTA images of the chest were obtained after the intravenous administration of 116 ml Optiray 320. Coronal and sagittal MIPS were obtained from the axial data set and were submitted for review. All measurements were obtained according to NASCET criteria. CT abdomen and pelvis with IV contrast also obtained. A dose lowering technique was utilized adhering to the principles of ALARA. COMPARISON: CTA of the chest 07/28/2018 FINDINGS: CTA: Mild cardiomegaly with coronary arterial calcifications. No pericardial effusion. No thoracic aortic aneurysm or dissection. Mild to moderate mixed plaque of the thoracic aorta. Patency of the imaged great vessels. The pulmonary arterial tree is opacified to the level of the subsegmental branches and demonstrates no focal filling defects to suggest pulmonary thromboembolic disease. CT CHEST: Unremarkable thyroid. Tracheostomy cannula terminates several centimeters above the rabia within the trachea. No adenopathy. Trace pleural effusions with dependent bibasilar consolidation. No pneumothorax. 1.5 x 1.1 x 1.4 cm groundglass nodular opacity of the apical segment right upper lobe, image 181 series 4 with mild adjacent linear subsegmental atelectasis/scarring. This previously measured approximately 1.3 x 0.9 cm on study from 07/28/2018. There is no overt pulmonary edema. 5 mm nodular opacity of the right upper lobe is noted on image 122 series 4. No additional suspicious pulmonary nodules identified. Soft tissues of the chest are unremarkable. 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 Healed remote right clavicular fracture. CT ABDOMEN/PELVIS: No pneumatosis or pneumoperitoneum. The spleen, adrenal glands, pancreas and liver are unremarkable. Indeterminate 6 mm hypodense lesion of the right hepatic lobe, likely benign. Moderate gallbladder distention. No cholelithiasis or gallbladder wall thickening. No significant biliary ductal dilation. There are a few cysts noted about the bilateral kidneys. There are a few nonobstructing calculi of the bilateral kidneys measuring up to 7 mm within the interpolar right kidney. No ureteral calculi or obstructive uropathy. Prostamegaly with moderate to marked urinary bladder distention. Calcified plaque of the abdominal aorta without aneurysm. Unremarkable IVC. Gastrostomy tube appears to be in satisfactory positioning. Layering hyperdense material noted within the sigmoid colon. The sigmoid colon is markedly distended and air-filled measuring up to 10.3 cm. There is twisting of the abdominal right lower quadrant mesentery, image 316 of series 6 which involves a portion of the tortuous sigmoid colon and transverse colon. Cecum is nondilated within the abdominal right lower quadrant. Fluid-filled loops of bowel are seen within the lower abdomen. Soft tissues are unremarkable. Demineralized appearance of the bones. Postsurgical changes of the lower lumbar spine. IMPRESSION: 1. No evidence of pulmonary thromboembolic disease. 2. Trace pleural effusions with bibasilar dependent consolidation suggests compressive atelectasis. Correlate clinically to exclude pneumonia. 3. 1.5 cm groundglass nodule of the apical segment right upper lobe is redemonstrated and is suspicious for a low-grade neoplasm along the adenocarcinoma spectrum. 4. Marked gaseous distention of the large bowel with twisting of the abdominal right lower quadrant mesentery resulting in obstruction. Findings are suggestive of an internal hernia/sigmoid volvulus. No pneumatosis or pneumoperitoneum. 5. Nonobstructing bilateral nephrolithiasis. 6. Additional findings as above. PG Care Time/CCT Total # of Minutes Spent Total Time Spent: 60 Total Time Spent with Patient: Total time spent is greater than 50% in coordination of care (as documented) at patient's floor/unit and/or counseling patient:
[2019-07-17] MEDS ORDERED: LACTATED RINGER'S 1,000 ML IV ONE (21:46)
--- NOTE | 2019-07-17 22:09 | History & Physical Report ---
Date of Service July 17, 2019 Assessment & Plan (1) Sepsis: Mr. Mcneal is a 78-year-old male with a history of ALS, hypertension, and depression who presents to [facility] due to a 2-day history of confusion, on a background of 2 weeks of progressive decline. ED Course: 2L NS bolus, 1L LR bolus, 1g IV acetaminophen, 4.5gm IV Zosyn Sepsis -admit to telemetry -pt meets criteria for sepsis with fever of 39.4 degrees Celsius, and tachycardia, with either pulmonary or GI source -White cell count low at 3.04, CRP elevated at 12.1 -CTA showed no evidence of PE. Bibasilar dependent consolidation suggesting atelectasis versus pneumonia. 1.5 cm groundglass nodule suspicious for low- grade neoplasm. -CT abdomen pelvis showed distention of large bowel with twisting of her abdominal right lower quadrant mesentery resulting obstructionsuggestive of sigmoid volvulus -Patient was significantly hypotensive in the emergency department, requiring 3 L of fluid resuscitation -Blood pressure is improved to 122/73. Continue maintenance IV fluids with LR at 120 mls/hr -Empiric antibiotics with Zosyn and vancomycin ordered -Blood cultures drawn x2 and pending. Sputum culture ordered and pending -UA negative SBO/Sigmoid Volvulus -GI and surgery were both consulted in the emergency department, and had extensive discussions with the patient's family regarding treatment options. Family elected for observation, as they did not want any invasive procedures performed -NPO, continue to monitor ALS -s/p trach and feeding tube placement -continue home supportive medications including riluzole, scopolamine patch, Osmolite nutritional supplement, and glycopyrrolate Depression -Continue home sertraline, trazodone, and Ativan Hypokalemia -potassium level 3.2 on admission -will replace with 10mEq K-riders x2 -repeat labs tomorrow Code status: DNR/DNI. Extensive discussion with family members regarding this. They did NOT want him to be moved to the ICU for pressors. They did NOT want any invasive procedures, including scopes/surgeries. They wanted him admitted overnight for antibiotics, fluids and observation, with the goal of making him comfortable and returning home. Palliative consult requested. DVT Prophylaxis: SCDs Disposition: admit to telemetry (2) Hypotension: (3) Small bowel obstruction: (4) Sigmoid volvulus: (5) Amyotrophic lateral sclerosis (ALS): (6) Depression: (7) Weakness: History of Present Illness Chief Complaint: Lethargy, confusion Primary Care Provider: Loreleimary MedinaWinnfieldjose Mcneal is a 78-year-old male with a history of ALS, hypertension, and depression who presents to [facility] due to a 2-day history of confusion, on a background of 2 weeks of progressive decline. History is provided by his family, namely his , daughter, and son, as the patient is lethargic and unable to contribute much to his history. The patient was diagnosed with ALS approximately 1 year ago. His family reports that he had a prolonged stay at [facility] during the time of his diagnosis, as it was initially thought that his symptoms were secondary to GBS. He had a tracheostomy placed, and was subsequently diagnosed with ALS. He has unfortunately suffered a progressive decline over the past few months, with 2 recent ER visits for urinary tract infection as well as a recent mucous plug. His family reports that they brought him to the hospital today because he has been increasingly confused and lethargic. They report that he was recently seen in the emergency department on 07/09/2019 for concerns regarding a mucous plug. Due to the fact that his white cell count was elevated at this time, he is placed on a course of Cefdinir, as prophylaxis to cover for pneumonia. He finished his last tablet yesterday. His family reports that over the past 2 to 3 weeks, he has been progressively weaker, and is now unable to stand. He has a pressure sore on his back. They note that his abdomen has been distended, however states that he has had 2 loose bowel movements today. His daughter also endorses concerns regarding the fact that he has thrush. Allergies Allergy/AdvReac Type Severity Reaction Status Date / Time No Known Allergies Allergy NKA Verified 07/17/19 19:29 Home Medications Home Medications Medication Instructions Recorded Confirmed Type acetaminophen 500 mg/15 mL oral 500 - 1,000 mg FEEDING TUBE Q6 PRN 04/26/19 07/17/19 History liquid ml albuterol sulfate 90 mcg/actuation 2 puffs INHALATION Q6 PRN gm 04/26/19 07/17/19 History aerosol inhaler lorazepam 0.5 mg tablet 0.5 mg FEEDING TUBE TID PRN tab 04/26/19 07/17/19 History potassium chloride 20 mEq/15 mL 20 meq FEEDING TUBE DAILY ml 04/26/19 07/17/19 History oral liquid simethicone 80 mg chewable tablet 80 mg FEEDING TUBE BID tab 04/26/19 07/17/19 History sodium chloride 3 % for 0 ml INHALATION Q6 PRN ml 04/26/19 07/17/19 History nebulization trazodone 50 mg tablet 25 mg FEEDING TUBE HS tab 04/26/19 07/17/19 History Atropine/Diphen. 0.025/2.5mg 1 dose FEEDING TUBE QAM 07/17/19 07/17/19 History Atropine/Diphenoxy 0.025/2.5mg 0 mg FEEDING TUBE TID PRN 07/17/19 07/17/19 History Guaifenesin 200mg (10 Ml) 1 dose FEEDING TUBE BID 07/17/19 07/17/19 History Scopolamine Patch 33mg/24hr 1 patch TOPICAL UD 07/17/19 07/17/19 History acetaminophen [Tylenol Extra 500 mg FEEDING TUBE HS 07/17/19 07/17/19 History Strength] gabapentin [Neurontin] 250 mg FEEDING TUBE HS 07/17/19 07/17/19 History glycopyrrolate 1 mg FEEDING TUBE BID 07/17/19 07/17/19 History lansoprazole 30 mg FEEDING TUBE UD 07/17/19 07/17/19 History loperamide 2 mg FEEDING TUBE BID 07/17/19 07/17/19 History loperamide 2 mg PO .Q2HR PRN 07/17/19 07/17/19 History lorazepam 0.5 mg FEEDING TUBE HS 07/17/19 07/17/19 History nutritional supplements [Osmolite 0 ea FEEDING TUBE UD 07/17/19 07/17/19 History 1.5 Jas] riluzole 50 mg FEEDING TUBE Q12H 07/17/19 07/17/19 History sertraline 100 mg PO DAILY 07/17/19 07/17/19 History simethicone 80 mg FEEDING TUBE TID PRN 07/17/19 07/17/19 History Past Med/Surg History Medical History Amyotrophic lateral sclerosis (ALS) HTN (hypertension) Lumbar stenosis Surgical History History of lumbar laminectomy Family History Other No significant family history Social History Preferred Language: Hebrew Communication Ability: Impaired Beliefs That Will Affect Care: None marital status: Current Living Situation: Family current occupational status: retired Feels Safe at Home: Yes Safety Concerns: Feels Safe At This Time Smoking Status: Former smoker Hx Alcohol Use: No Hx Substance Use: No Review of Systems Review of Systems: unable to obtain due to lethargy Physical Exam Constitutional: WD/WN, vitals as above + ill appearing and + thin patient was lethargic, opening eyes briefly and then falling back asleep Eyes: PERRL, conjunctivae normal, anicteric sclerae ENMT: external ear and nose normal, oropharynx normal Mouth: + oral mucosal abnormality (white plaque noted on tongue) Respiratory: normal respiratory effort; no respiratory distress and no cough Auscultation: + diminished lung sounds Cardiovascular: RRR, no murmur, no edema Gastrointestinal (Abdomen): Inspection/Auscultation: + abdomen distended Percussion/Palpation: abdomen soft; abdomen nontender, no guarding and abdomen not rigid Skin: no rashes, warm and dry Results & Data Vital Signs (Past 12 Hours) Vital Signs Temp Pulse Resp BP Pulse Ox 07/17/19 21:21 86 14 97 07/17/19 20:46 83 13 97 07/17/19 20:45 83 12 85/56 L 97 07/17/19 20:40 83 13 83/55 L 95 07/17/19 20:32 83 13 96 07/17/19 20:31 83 15 83/53 L 96 07/17/19 20:30 83 13 75/54 L 96 07/17/19 20:15 85 13 96 07/17/19 20:03 89 16 85/53 L 96 07/17/19 20:01 88 13 95 07/17/19 20:00 87 12 71/53 L 95 07/17/19 19:46 17 07/17/19 19:45 95 H 14 95 07/17/19 19:31 93 H 16 95 07/17/19 19:30 94 H 17 90/60 L 95 07/17/19 19:21 96 H 18 97/67 L 95 07/17/19 18:45 37.2 C 104 H 17 94 07/17/19 18:31 103 H 15 93 07/17/19 18:30 103 H 14 107/53 L 93 07/17/19 18:15 109 H 15 92 07/17/19 18:01 110 H 21 92 07/17/19 18:00 110 H 15 102/64 93 07/17/19 17:45 112 H 22 92 07/17/19 17:31 113 H 17 91 07/17/19 17:30 113 H 16 111/66 91 07/17/19 17:17 89 L 07/17/19 17:15 116 H 18 87 L 07/17/19 17:11 39.4 C H 115 H 20 104/66 89 L 07/17/19 17:09 115 H 17 87 L 07/17/19 17:06 116 H 19 104/66 88 L Code Status & VTE Plan VTE Prophylaxis Plan VTE Prophylaxis will be ordered: Yes Supervising Physician Co-Signing Physician Notes Attending addendum: I have physically seen this patient, have supervised the medical residents activities, and agree with the H&P unless as otherwise noted. Assessment and Plan: Sepsis- Multiple possible sources include pulmonary and gastrointestinal. Suspected aspiration pneumonia- Duonebs every 4 hours while awake and every 2 hours when necessary. Empiric vancomycin and Zosyn IV to cover pulmonary and GI sources. Follow blood cultures and sputum cultures. SBO/sigmoid volvulus- Patient had previously been assessed by both gastroenterology and general surgery while in the ED. Family has decided to have conservative therapy, and therefore patient be admitted for observation, and no aggressive, invasive procedures will be performed. NPO. IV fluids. ALS- Status post trach with feeding tube placement, with feedings to be held for now. Continue supportive treatment Remainder of orders and notations as noted. Resident Activity Tracking Resident Involvement: Resident Care Provided Care Provided: Adult Hospital Medicine (1) Hypotension Hypotension type: unspecified hypotension type Qualified Code(s): I95.9 - Hypotension, unspecified
[2019-07-17] MEDS ORDERED: LORazepam 0.5 MG TAB PO PRN (23:48)
[2019-07-17] MEDS ORDERED: VANCOMYCIN CONSULT ACTIVE PRN (23:48)
[2019-07-17] MEDS ORDERED: SIMETHICONE 80 MG CHEW PO PRN (23:48)
[2019-07-17] MEDS ORDERED: ALBUTEROL HFA 8 GM INHALER INH PRN (23:48)
[2019-07-18] MEDS ORDERED: VANCOMYCIN HCL 1,750 MG in SODIUM CHLORIDE 0.9% 500 ML IV SCH
[2019-07-18] MEDS ORDERED: DIPHENOXYLATE/ATROPINE 2.5/0.025MG TAB PO PRN (00:32)
[2019-07-18] MEDS: POTASSIUM CHLORIDE / WTR 10 MEQ/100 ML PLCT IV SCH ×2 (02:12→04:05)
[2019-07-18] MEDS: PIPERACILLIN/TAZOBACTAM 3.375 GM in DEXTROSE 5% 100 ML IV SCH ×2 (02:12→11:01)
[2019-07-18 06:10] LABS: Hematocrit (blood only) 30.2 % (42-52); Hemoglobin 9.9 g/dL (14.0-18.0); Mean Corpuscular Hemoglobin 32.1 pg (25-34); Mean Corpuscular Hgb Conc 32.8 g/dL (32-36); Mean Corpuscular Volume 98.1 fL (80-100); Mean Platelet Volume 9.9 fL (7.4-10.4); Platelet Count 233 K/uL (130-400); RDW Coefficient of Variation 14.8 % (11.5-14.5); RDW Standard Deviation 53.3 fL (36.4-46.3); Red Blood Count 3.08 M/uL (4.7-6.1)
[2019-07-18 06:34] LABS: BUN Creatinine Ratio 42.8 (10-20); Calcium 8.9 mg/dl (8.5-10.1); Creatinine Clr Calc Pharmacy 76.5 ml/min; Eosinophils # (auto) 0.01 K/uL (0-0.5); Eosinophils % (auto) 0.2 %; Est GFR (African American) 100.7; Est GFR (Non-African American) 86.9; Immature Granulocytes # (auto) 0.07 K/uL (0.00-0.02); Immature Granulocytes % (auto) 1.7 %; Lymphocytes # (auto) 0.35 K/uL (1.2-3.4); Lymphocytes % (auto) 8.3 %; Monocytes # (auto) 0.95 K/uL (0.11-0.59); Monocytes % (auto) 22.6 %; Neutrophils # (auto) 2.82 K/uL (1.4-6.5); Neutrophils % (auto) 67.2 %; Potassium 3.2 mmol/L (3.5-5.1); Toxic Vacuolation 1+
[2019-07-18] MEDS: LACTATED RINGER'S 1,000 ML IV SCH ×3 (08:25→16:41)
[2019-07-18] MEDS: LOPERAMIDE LIQUID 120 ML BOTTLE PO SCH ×2 (08:29→20:48)
[2019-07-18] MEDS: NYSTATIN SUSP 500,000 U/5 ML UDC PO SCH ×4 (08:29→20:52)
[2019-07-18] MEDS: POTASSIUM CHLORIDE 20 MEQ/15 ML UDC GT SCH (08:29)
[2019-07-18] MEDS: LANSOPRAZOLE 30 MG SOLTAB GT SCH ×2 (08:29→20:50)
[2019-07-18] MEDS: DIPHENOXYLATE/ATROPINE 2.5/0.025MG TAB PO SCH (08:29)
[2019-07-18] MEDS: SERTRALINE HCL 100 MG TABLET PEG SCH (08:30)
[2019-07-18] MEDS: GLYCOPYRROLATE 1 MG TAB PO SCH ×2 (08:30→20:51)
[2019-07-18] MEDS: guaiFENesin SUGAR FREE 200 MG/10 ML UDC PO SCH ×2 (08:30→20:48)
[2019-07-18] MEDS: CHECK SCOPOLAMINE PATCH PLACEMENT SCH ×2 (08:34→16:41)
[2019-07-18] MEDS ORDERED: SCOPOLAMINE 1.5 MG TDSY TD SCH (09:00)
[2019-07-18] MEDS ORDERED: LOPERAMIDE HCL 2 MG CAP PO PRN (10:17)
[2019-07-18] MEDS ORDERED: VANCOMYCIN HCL 1,000 MG in SODIUM CHLORIDE 0.9% 250 ML IV SCH (12:00)
--- NOTE | 2019-07-18 14:30 | Surgery Progress Note ---
Date of Service July 18, 2019 Assessment & Plan (1) Sigmoid volvulus: 78-year-old male with advanced ALS with colonic distention that could be related to internal hernia, sigmoid volvulus, or neurogenic bowel. Family elected for no invasive interventions, and he appears to be doing better this morning. Continue noninvasive measures Patient expressed that he does not want surgery Consider plan of care consult to define goals of care and possible home hospice placement Surgery will sign off, call with questions or concerns Present on Admission?: Yes Subjective 78-year-old male with advanced ALS admitted with colonic volvulus versus internal hernia versus neurogenic colon. The family elected for no invasive interventions. He looks better this morning is more responsive. He denies any pain. He is still distended. His reports that the nurses did clean up with small bowel movement earlier today. Physical Exam Constitutional: + thin, + lethargic and + mechanically ventilated Eyes: PERRL, conjunctivae normal, anicteric sclerae ENMT: external ear and nose normal, oropharynx normal Neck: trachea midline, no thyromegaly + tracheostomy present Respiratory: Auscultation: + crackles (Bilateral) Cardiovascular: Rate/Rhythm: regular rhythm and + tachycardic Gastrointestinal (Abdomen): Inspection/Auscultation: + abdomen distended (Slightly improved distention, tympanitic to percussion) and + abdominal surgical scar (Midline laparotomy scar) Percussion/Palpation: abdomen soft; abdomen nontender, no guarding and abdomen not rigid Results & Data Vital Signs (Past 12 Hours) Vital Signs Temp Pulse Pulse Resp BP Pulse Ox 07/18/19 11:38 36.8 C 94 H 23 109/86 94 07/18/19 07:47 36.5 C 84 20 89/68 L 96 07/18/19 07:18 84 19 96 07/18/19 04:40 36.5 C 83 18 104/68 97 PG Care Time/CCT Total # of Minutes Spent Total Time Spent with Patient: Total time spent is greater than 50% in coordination of care (as documented) at patient's floor/unit and/or counseling patient:
--- NOTE | 2019-07-18 15:13 | Pharmacy Report ---
Pharmacy Abx Initial Consult - Date of Service July 18, 2019 - Pharmacy Dosing Scope Date of Consult: 07/17 Consultation requested by: Dr. Vora Pharmacy is consulted to initiate vancomycin/zosyn IV/PO dosing therapy, order appropriate labs and adjust drug dose/frequency. - Subjective The patient is a 78 year old M admitted on 07/17/19 22:08. - Objective Height: 5 ft 8 in Weight: 70.9 kg Vital Signs (Past 12hrs): Vital Signs Temp Pulse Pulse Resp BP Pulse Ox 07/18/19 11:38 36.8 C 94 H 23 109/86 94 07/18/19 07:47 36.5 C 84 20 89/68 L 96 07/18/19 07:18 84 19 96 07/18/19 04:40 36.5 C 83 18 104/68 97 Lab Results (24hrs): Laboratory Tests (24 Hours) 07/18/19 07/18/19 07/17/19 05:58 05:58 17:48 WBC 4.20 L Neut # (Auto) 2.82 ESR Creatinine 0.77 0.71 Est Cr Clr Drug Dosing 76.5 88.5 C-Reactive Protein 12.10 H Procalcitonin 07/17/19 07/17/19 07/17/19 17:48 17:48 17:48 WBC 3.04 L Neut # (Auto) 1.89 ESR 90 H Creatinine Est Cr Clr Drug Dosing C-Reactive Protein Procalcitonin 0.36 Micro Results: 07/17/19 Unknown Gram Stain - Final Sputum,Trach 07/17/19 18:03 Aerobic Blood Culture - Pending Blood Anaerobic Blood Culture - Pending 07/17/19 17:48 Aerobic Blood Culture - Pending Blood Anaerobic Blood Culture - Pending - Assessment & Plan Assessment 78 year old M with PMH including ALS, HTN, depression presented with confusion and reported 2 weeks of progressive decline. ALS diagnosed ~1 year ago. Patient with recent urinary tract infections, recent completion of cefdinir. Leukopenia, febrile on admission 39.4, started empirically on vancomycin and zosyn. Blood cultures are pending, sputum currently growing a gram negative bacilli. Plan Vancomycin IV * Estimated PK Parameters: Vd 0.7 L/kg, Too 0.067 hr-1, t1/2 10 hr * Scr is similar to previous, although given ALS diagnosis uncertain utility * Loading dose: 1750 mg (23 mg/kg) * Maintenance dose: 1000 mg IV (13 mg/kg) every 12 hours * Goal trough level 10-15 mcg/mL * Trough ordered for tomorrow @1130 * A less than traditional dose and/or extended dosing interval has/have been selected due to likelihood of drug accumulation in obese patient/patient with h/o CKD. Piperacillin/tazobactam * 4.5 g bolus administered over 30 minutes, then 3.375 g IV extended infusion every 8 hours for CrCl greater than 20 mL/min se. Pharmacy will continue to follow and will adjust dose/frequency as necessary. Thank you.
--- NOTE | 2019-07-18 15:17 | Hospitalist Progress Note ---
Date of Service July 18, 2019 Assessment & Plan (1) Sigmoid volvulus: discussed with surgery, either internal hernia or volvulus causing colonic and bowel distension however, likely a subacute issue as he has had the distension for a few weeks moving his bowels on a daily basis no extreme pain, no distress, no nausea will resume tube feeds today patient and family would never want any surgical intervention surgery will sign off (2) Hypokalemia: 3.2, will place on elixer replacement via PEG (3) Hypotension: resolved with IV fluids, will stop them today no further signs of sepsis, Lactic acid normal stop IV antibiotics (4) Amyotrophic lateral sclerosis (ALS): supportive care has services and family support at home will ask CM to try to get Mitesh Lift, [facility] is [facility] patient plans for home hospice going forward, palliative involved (5) Depression: mood is stable today despite circumstances (6) Weakness: ongoing, due to ALS (7) HTN (hypertension): BP stable, was low but now normal Subjective patient feeling fine this morning discussed situation with him and his daughter at the bedside who helps care for him at home has had ALS for about a year, slowly progressing a few weeks ago he was still able to stand and walk a little his abdomen has been distended for weeks, even more than it is now he has been moving his bowels, just had a liquid BM the day prior to admission bowels are always liquid reviewed CT with patient and daughter, do not feel that this is catastrophic situation will resume tube feeds, discussed with silviculture forester and they will place orders reviewed labs, K a little low at 3.2, Cr stable CBC is stable patient expressed several times his desire to go home tomorrow palliative and case management both helping to work towards going home with hospice if appropriate Review of Systems Review of Systems: All systems reviewed & are unremarkable except as noted in HPI & below Gastrointestinal: + bloating (several weeks) and + diarrhea/loose stools; no abdominal pain, no nausea, no vomiting and no constipation Physical Exam Constitutional: WD/WN, vitals as above Eyes: PERRL, conjunctivae normal, anicteric sclerae ENMT: external ear and nose normal, oropharynx normal Nose: + dry nasal mucous membranes Neck: trachea midline, no thyromegaly (tracheostomy in place) Respiratory: normal respiratory effort, lungs clear to auscultation (decreased breath sounds in bases) Cardiovascular: RRR, no murmur, no edema Gastrointestinal (Abdomen): Inspection/Auscultation: + abdomen distended and normal bowel sounds Percussion/Palpation: + tympanic to percussion and + abdomen firm; abdomen nontender Musculoskeletal: Head/Neck/Chest: normocephalic and head atraumatic Extremities: + abnormal strength (generalized weakness, cannot transition, moving arms well) and + muscle atrophy (muscles of hands and feet); no cyanosis and no clubbing Skin: no rashes, warm and dry Neurologic: normal touch/pain/proprioception, CN's II-XI intact bilaterally, moves all extremities and awake Speech / Cognition: + abnormal speech Motor/Sensory: + fasciculations; no tremor Psychiatric: A+Ox3, euthymic affect Lymphatic: no cervical or axillary lymphadenopathy Results & Data Vital Signs (Past 12 Hours) Vital Signs Temp Pulse Pulse Resp BP Pulse Ox 07/18/19 11:38 36.8 C 94 H 23 109/86 94 07/18/19 07:47 36.5 C 84 20 89/68 L 96 07/18/19 07:18 84 19 96 07/18/19 04:40 36.5 C 83 18 104/68 97 Laboratory Results Laboratory Results - last 24 hr 07/17/19 07/17/19 07/17/19 17:48 17:48 17:48 WBC 3.04 L RBC 3.59 L Hgb 11.7 L Hct 35.0 L MCV 97.5 MCH 32.6 MCHC 33.4 RDW Std Deviation 52.3 H RDW Coeff of Sudha 14.6 H Plt Count 310 MPV 10.8 H Immature Gran % (Auto) 0.7 Neut % (Auto) 62.1 Lymph % (Auto) 9.2 [place] % (Auto) 28.0 Eos % (Auto) 0.0 Baso % (Auto) 0.0 Immature Gran # (Auto) 0.02 Neut # (Auto) 1.89 Lymph # (Auto) 0.28 L [place] # (Auto) 0.85 H Eos # (Auto) 0.00 Baso # (Auto) 0.00 Toxic Vacuolation ESR PT 11.6 INR 1.1 APTT 36.5 H PTT Ratio 1.3 VBG pH VBG pCO2 VBG pO2 VBG HCO3 VBG O2 Saturation VBG Base Excess Barometric Pressure Sodium Potassium Chloride Carbon Dioxide Anion Gap BUN Creatinine Est Cr Clr Drug Dosing Est GFR ( Amer) Est GFR (Non-Af Amer) BUN/Creatinine Ratio Glucose Lactate 1.4 Calcium Magnesium Total Bilirubin AST ALT Alkaline Phosphatase Troponin I C-Reactive Protein Total Protein Albumin Globulin Albumin/Globulin Ratio Procalcitonin Urine Color Urine Appearance Urine pH Ur Specific [place] Urine Protein Urine Glucose (UA) Urine Ketones Urine Blood Urine Nitrite Urine Bilirubin Urine Urobilinogen Ur Leukocyte Esterase Urine WBC (Auto) Urine RBC (Auto) U Hyaline Cast (Auto) U Epithel Cells (Auto) Urine Bacteria (Auto) 07/17/19 07/17/19 07/17/19 17:48 17:48 17:48 WBC RBC Hgb Hct MCV MCH MCHC RDW Std Deviation RDW Coeff of Sudha Plt Count MPV Immature Gran % (Auto) Neut % (Auto) Lymph % (Auto) [place] % (Auto) Eos % (Auto) Baso % (Auto) Immature Gran # (Auto) Neut # (Auto) Lymph # (Auto) [place] # (Auto) Eos # (Auto) Baso # (Auto) Toxic Vacuolation ESR 90 H PT INR APTT PTT Ratio VBG pH VBG pCO2 VBG pO2 VBG HCO3 VBG O2 Saturation VBG Base Excess Barometric Pressure Sodium 138 Potassium 3.2 L Chloride 108 H Carbon Dioxide 19 L Anion Gap 11.0 BUN 35 H Creatinine 0.71 Est Cr Clr Drug Dosing 88.5 Est GFR ( Amer) 104.2 Est GFR (Non-Af Amer) 89.9 BUN/Creatinine Ratio 49.9 H Glucose 132 H Lactate Calcium 10.1 Magnesium 2.5 H Total Bilirubin 1.5 H AST 27 ALT 38 Alkaline Phosphatase 220 H Troponin I 0.023 C-Reactive Protein 12.10 H Total Protein 7.9 Albumin 3.3 L Globulin 4.6 H Albumin/Globulin Ratio 0.7 L Procalcitonin 0.36 Urine Color Urine Appearance Urine pH Ur Specific [place] Urine Protein Urine Glucose (UA) Urine Ketones Urine Blood Urine Nitrite Urine Bilirubin Urine Urobilinogen Ur Leukocyte Esterase Urine WBC (Auto) Urine RBC (Auto) U Hyaline Cast (Auto) U Epithel Cells (Auto) Urine Bacteria (Auto) 07/17/19 07/17/19 07/18/19 17:48 19:40 05:58 WBC 4.20 L RBC 3.08 L Hgb 9.9 L Hct 30.2 L MCV 98.1 MCH 32.1 MCHC 32.8 RDW Std Deviation 53.3 H RDW Coeff of Sudha 14.8 H Plt Count 233 MPV 9.9 Immature Gran % (Auto) 1.7 Neut % (Auto) 67.2 Lymph % (Auto) 8.3 [place] % (Auto) 22.6 Eos % (Auto) 0.2 Baso % (Auto) 0.0 Immature Gran # (Auto) 0.07 H Neut # (Auto) 2.82 Lymph # (Auto) 0.35 L [place] # (Auto) 0.95 H Eos # (Auto) 0.01 Baso # (Auto) 0.00 Toxic Vacuolation 1+ ESR PT INR APTT PTT Ratio VBG pH 7.33 L VBG pCO2 42 VBG pO2 38 VBG HCO3 21 VBG O2 Saturation 68.4 VBG Base Excess -4.6 Barometric Pressure 739.8 Sodium Potassium Chloride Carbon Dioxide Anion Gap BUN Creatinine Est Cr Clr Drug Dosing Est GFR ( Amer) Est GFR (Non-Af Amer) BUN/Creatinine Ratio Glucose Lactate Calcium Magnesium Total Bilirubin AST ALT Alkaline Phosphatase Troponin I C-Reactive Protein Total Protein Albumin Globulin Albumin/Globulin Ratio Procalcitonin Urine Color Dark Yellow Urine Appearance Clear Urine pH 5.0 Ur Specific [place] 1.025 Urine Protein Trace H Urine Glucose (UA) Negative Urine Ketones Negative Urine Blood Negative Urine Nitrite Positive A Urine Bilirubin 1+ H Urine Urobilinogen Negative Ur Leukocyte Esterase Trace H Urine WBC (Auto) 1-5 Urine RBC (Auto) 0-4 U Hyaline Cast (Auto) 1-5 U Epithel Cells (Auto) 0-5 Urine Bacteria (Auto) Negative 07/18/19 05:58 WBC RBC Hgb Hct MCV MCH MCHC RDW Std Deviation RDW Coeff of Sudha Plt Count MPV Immature Gran % (Auto) Neut % (Auto) Lymph % (Auto) [place] % (Auto) Eos % (Auto) Baso % (Auto) Immature Gran # (Auto) Neut # (Auto) Lymph # (Auto) [place] # (Auto) Eos # (Auto) Baso # (Auto) Toxic Vacuolation ESR PT INR APTT PTT Ratio VBG pH VBG pCO2 VBG pO2 VBG HCO3 VBG O2 Saturation VBG Base Excess Barometric Pressure Sodium 142 Potassium 3.2 L Chloride 113 H Carbon Dioxide 19 L Anion Gap 10.0 BUN 33 H Creatinine 0.77 Est Cr Clr Drug Dosing 76.5 Est GFR ( Amer) 100.7 Est GFR (Non-Af Amer) 86.9 BUN/Creatinine Ratio 42.8 H Glucose 137 H Lactate Calcium 8.9 Magnesium Total Bilirubin AST ALT Alkaline Phosphatase Troponin I C-Reactive Protein Total Protein Albumin Globulin Albumin/Globulin Ratio Procalcitonin Urine Color Urine Appearance Urine pH Ur Specific [place] Urine Protein Urine Glucose (UA) Urine Ketones Urine Blood Urine Nitrite Urine Bilirubin Urine Urobilinogen Ur Leukocyte Esterase Urine WBC (Auto) Urine RBC (Auto) U Hyaline Cast (Auto) U Epithel Cells (Auto) Urine Bacteria (Auto) Medications Administered Current Inpatient Medications Albuterol (Ventolin Hfa) 2 puffs INH Q6 PRN PRN Reason: Shortness Of Breath Or Wheezing Stop: 08/16/19 23:47 Diphenoxylate HCl/Atropine (Lomotil) 1 tab PO QAM [facility] Stop: 08/17/19 08:59 Last Admin: 07/18/19 08:29 Dose: Not Given Documented by: Diphenoxylate HCl/Atropine (Lomotil) 1 tab PO TID PRN PRN Reason: Diarrhea Stop: 08/17/19 00:31 Enteral Nutritional Formula (Peptamen 1.5 Jas) 1,000 ml PEG DAILY@1400 [facility]; Protocol Stop: 08/17/19 13:59 Gabapentin (Neurontin) 250 mg PO [facility] Stop: 08/17/19 20:59 Glycopyrrolate (Robinul) 1 mg PO BID [facility] Stop: 08/17/19 08:59 Last Admin: 07/18/19 08:30 Dose: Not Given Documented by: Guaifenesin (Robitussin Sugar Free) 1 mg PO BID [facility] Stop: 08/17/19 08:59 Last Admin: 07/18/19 08:30 Dose: Not Given Documented by: Lactated Ringer's (Lr) 1,000 mls @ 120 mls/hr IV .Q8H20M [facility] Stop: 08/16/19 23:47 Last Admin: 07/18/19 08:25 Dose: 120 mls/hr Documented by: Acetaminophen (Ofirmev) 1,000 mg in 100 mls @ 400 mls/hr IV Q8H PRN PRN Reason: Pain or Fever Stop: 07/21/19 00:51 Piperacillin Sod/Tazobactam (Sod 3.375 gm/ Dextrose) 115 mls @ 28.75 mls/hr IV Q8H [facility]; Protocol Stop: 07/20/19 01:59 Last Admin: 07/18/19 11:01 Dose: 28.8 mls/hr Documented by: Vancomycin HCl 1,000 mg/ (Sodium Chloride) 270 mls @ 125 mls/hr IV Q12H [facility] Stop: 07/20/19 11:59 Last Admin: 07/18/19 13:27 Dose: 125 mls/hr Documented by: Ioversol (Optiray 320 125ml) 116 ml IV ONCE PRN PRN Reason: Interaction Checking Stop: 07/21/19 19:08 Last Admin: 07/17/19 19:09 Dose: 116 ml Documented by: Lansoprazole (Prevacid) 30 mg GT BID [facility] Stop: 08/17/19 08:59 Last Admin: 07/18/19 08:29 Dose: Not Given Documented by: Loperamide HCl (Imodium A-D Liquid) 2 mg PO BID [facility] Stop: 08/17/19 08:59 Last Admin: 07/18/19 08:29 Dose: Not Given Documented by: Loperamide HCl (Imodium) 2 mg PO Q2H PRN PRN Reason: Diarrhea Stop: 08/17/19 10:16 Lorazepam (Ativan) 0.5 mg PO TID PRN PRN Reason: Anxiety Stop: 08/16/19 23:47 Lorazepam (Ativan) 0.5 mg PO HS [facility] Stop: 08/17/19 20:59 Miscellaneous (Order Awaiting Action) 1 ea N/A QS [facility] Stop: 08/17/19 00:44 Last Admin: 07/18/19 01:56 Dose: Not Given Documented by: Miscellaneous (Check Scopolamine Patch Placement) 1 ea N/A QS [facility] Stop: 08/17/19 07:59 Last Admin: 07/18/19 08:34 Dose: 1 ea Documented by: Miscellaneous Information (Consult) 1 ea N/A UD PRN PRN Reason: Consult Stop: 08/16/19 19:19 Miscellaneous Information (Consult) 1 ea N/A UD PRN PRN Reason: Consult Stop: 08/16/19 23:47 Nystatin (Mycostatin) 5 ml PO QID [facility] Stop: 07/28/19 08:59 Last Admin: 07/18/19 13:32 Dose: 5 ml Documented by: Potassium Chloride (Uyen Ciel Elix) 20 meq GT DAILY [facility] Stop: 08/17/19 08:59 Last Admin: 07/18/19 08:29 Dose: Not Given Documented by: Scopolamine (Transderm-Scop) 1.5 mg TD Q72H [facility] Stop: 08/17/19 08:59 Last Admin: 07/18/19 08:32 Dose: 1.5 mg Documented by: Sertraline HCl (Zoloft) 100 mg PEG DAILY [facility] Stop: 08/17/19 08:59 Last Admin: 07/18/19 08:30 Dose: Not Given Documented by: Simethicone (Mylicon) 80 mg PO TID PRN PRN Reason: GAS/BLOATING Stop: 08/16/19 23:47 Simethicone (Mylicon) 80 mg PO BID [facility] Stop: 08/17/19 20:59 Trazodone HCl (Desyrel) 25 mg GT HS [facility] Stop: 08/17/19 20:59 PG Care Time/CCT Total # of Minutes Spent Total Time Spent: 42 Total Time Spent with Patient: Total time spent is greater than 50% in coordination of care (as documented) at patient's floor/unit and/or counseling p atient: (1) Hypotension Hypotension type: unspecified hypotension type Qualified Code(s): I95.9 - Hypotension, unspecified
[2019-07-18] MEDS: PEPTAMEN 1.5 CAL 1,000 ML BAG PEG SCH (15:18)
--- NOTE | 2019-07-18 17:04 | Palliative Care Consultation ---
Date of Consultation July 18, 2019 Assessment & Plan (1) Palliative care encounter: Patient is a 78-year-old male who was diagnosed with ALS in August 2018 after prolonged hospitalization at [facility] and extensive work-up. Patient was having weakness in the upper and lower extremities-it was initially felt that he had Guillain Dunn and had a trach placed which was planned to be temporary. Patient has had a rapid progressive course. Patient is cared for at home by his , daughter and son-who perform all his needed care. Patient presented to the emergency room on 07/17 for some increased shortness of breath, confusion and fever. He was found to be hypotensive with a blood pressure of 81/57- patient received IV resuscitation with improvement in his blood pressure. Patient is currently trach and G-tube dependent. Patient with a distended abdomen-this was determined to be volvulus-patient and family opting for conservative management. Patient seen and examined in room 202-patient's at bedside. reports decline over the past several weeks-he is now a 2 person transfer-he would benefit from a Mitesh lift at home to decrease the burden of family caregivers. Family's discussion with attending physician-plan is for discharge home with home health with transition to hospice at a later date. Patient is awake and alert-able to communicate-able to speak but his voice is very weak. -Goals of care-plan is for discharge home with home health with transition to hospice -ALS-diagnosed in August 2018-rapidly progressive type. Patient now trach and G-tube dependent. Continued on home meds. -Sigmoid volvulus-conservative management, patient denies pain, no pain on palpation, patient passing gas as well as stool -Dyspnea-resolved, continue home vent settings -Will continue to follow and assist patient and family with medical decision making (2) Amyotrophic lateral sclerosis (ALS): (3) Sigmoid volvulus: (4) Dyspnea and respiratory abnormalities: History of Present Illness Reason for Consultation: Assist with goals of care Requesting Physician: Dr. Pablo Presley Attending Physician: Pablo Presley, DO History of Present Illness Patient is a 78-year-old male who was diagnosed with ALS in August 2018 after prolonged hospitalization at [facility] and extensive work-up. Patient was having weakness in the upper and lower extremities-it was initially felt that he had Guillain Dunn and had a trach placed which was planned to be temporary. Patient has had a rapid progressive course. Patient is cared for at home by his , daughter and son-who perform all his needed care. Patient presented to the emergency room on 07/17 for some increased shortness of breath, confusion and fever. He was found to be hypotensive with a blood pressure of 81/57- patient received IV resuscitation with improvement in his blood pressure. Vania mayorga is currently trach and G-tube dependent. Patient with a distended abdomen-this was determined to be volvulus-patient and family opting for conservative management. Patient did receive 24 hours of IV antibiotics for possible pneumonia-these have been discontinued as chest CT and chest x-ray did not show fulminant pneumonia and patient has not had any further fevers or shortness of breath. Patient seen and examined in room 202-patient's , Tess, at bedside. reports decline over the past several weeks-he is now a 2 person transfer-he would benefit from a Mitesh lift at home to decrease the burden of family caregivers. Family's discussion with attending physician-plan is for discharge home with home health with transition to hospice at a later date. Family aware patient is rapidly declining. Patient is awake and alert-able to communicate-able to speak but his voice is very weak. Allergies Allergy/AdvReac Type Severity Reaction Status Date / Time No Known Allergies Allergy NKA Verified 07/17/19 19:29 Home Medications Home Medications Medication Instructions Recorded Confirmed Type acetaminophen 500 mg/15 mL oral 500 - 1,000 mg FEEDING TUBE Q6 PRN 04/26/19 07/17/19 History liquid ml albuterol sulfate 90 mcg/actuation 2 puffs INHALATION Q6 PRN gm 04/26/19 07/17/19 History aerosol inhaler lorazepam 0.5 mg tablet 0.5 mg FEEDING TUBE TID PRN tab 04/26/19 07/17/19 History potassium chloride 20 mEq/15 mL 20 meq FEEDING TUBE DAILY ml 04/26/19 07/17/19 History oral liquid simethicone 80 mg chewable tablet 80 mg FEEDING TUBE BID tab 04/26/19 07/17/19 History sodium chloride 3 % for 0 ml INHALATION Q6 PRN ml 04/26/19 07/17/19 History nebulization trazodone 50 mg tablet 25 mg FEEDING TUBE HS tab 04/26/19 07/17/19 History Atropine/Diphen. 0.025/2.5mg 1 dose FEEDING TUBE QAM 07/17/19 07/17/19 History Atropine/Diphenoxy 0.025/2.5mg 0 mg FEEDING TUBE TID PRN 07/17/19 07/17/19 History Guaifenesin 200mg (10 Ml) 1 dose FEEDING TUBE BID 07/17/19 07/17/19 History Scopolamine Patch 33mg/24hr 1 patch TOPICAL UD 07/17/19 07/17/19 History acetaminophen [Tylenol Extra 500 mg FEEDING TUBE HS 07/17/19 07/17/19 History Strength] gabapentin [Neurontin] 250 mg FEEDING TUBE HS 07/17/19 07/17/19 History glycopyrrolate 1 mg FEEDING TUBE BID 07/17/19 07/17/19 History lansoprazole 30 mg FEEDING TUBE UD 07/17/19 07/17/19 History loperamide 2 mg FEEDING TUBE BID 07/17/19 07/17/19 History loperamide 2 mg PO .Q2HR PRN 07/17/19 07/17/19 History lorazepam 0.5 mg FEEDING TUBE HS 07/17/19 07/17/19 History nutritional supplements [Osmolite 0 ea FEEDING TUBE UD 07/17/19 07/17/19 History 1.5 Jas] riluzole 50 mg FEEDING TUBE Q12H 07/17/19 07/17/19 History sertraline 100 mg PO DAILY 07/17/19 07/17/19 History simethicone 80 mg FEEDING TUBE TID PRN 07/17/19 07/17/19 History Patient History Medical History Amyotrophic lateral sclerosis (ALS) HTN (hypertension) Lumbar stenosis Surgical History History of lumbar laminectomy Family History Other No significant family history Social History Preferred Language: Hungarian Communication Ability: Impaired Beliefs That Will Affect Care: None marital status: Current Living Situation: Family current occupational status: retired Feels Safe at Home: Yes Safety Concerns: Feels Safe At This Time Smoking Status: Former smoker Hx Alcohol Use: No Hx Substance Use: No Review of Systems Review of Systems: Patient denies fever, increased shortness of breath, chest pain, or abdominal pain Positive for weakness Physical Exam Physical Exam: PE: Patient awake and alert, appears comfortable HEENT: [place], [place] Respirations, unlabored, on trach/vent, good air movement bilaterally CV: Regular rate, no edema Abdomen: Distended, nontender, positive bowel sounds Extremities: Significant weakness all extremities Results & Data Vital Signs (Past 12 Hours) Vital Signs Temp Pulse Pulse Resp BP Pulse Ox 07/18/19 15:57 99.1 F 97 H 22 93/68 L 96 07/18/19 15:35 23 94 07/18/19 11:38 98.2 F 94 H 23 109/86 94 07/18/19 07:47 97.7 F 84 20 89/68 L 96 07/18/19 07:18 84 19 96 PG Care Time/CCT Total # of Minutes Spent Total Time Spent with Patient: Total time spent is greater than 50% in coordination of care (as documented) at patient's floor/unit and/or counseling patient: Time Spent Attending Total time spent 55 minutes with greater than 50% of the time spent at bedside discussing goals of care with patient and
[2019-07-18] MEDS: TRAZODONE HCL 50 MG TAB GT SCH (20:48)
[2019-07-18] MEDS: SIMETHICONE 80 MG CHEW PO SCH (20:51)
[2019-07-18] MEDS ORDERED: GABAPENTIN 150 MG/3 ML UDP GT SCH (21:00)
[2019-07-18] MEDS: ACETAMINOPHEN 1,000 MG/100 ML VIAL IV PRN (21:02)
[2019-07-18] MEDS: LORazepam 0.5 MG TAB PO SCH (21:02)
[2019-07-18] MEDS: GABAPENTIN 250 MG/5 ML 470 ML BTL PO SCH (21:02)
--- NOTE | 2019-07-19 01:02 | Billing Data ---
Coding Level of Care Code 46913 Initial Inpt Care Lvl 3
[2019-07-19] MEDS: CHECK SCOPOLAMINE PATCH PLACEMENT SCH ×3 (01:13→15:49)
[2019-07-19] MEDS: LACTATED RINGER'S 1,000 ML IV SCH ×2 (01:15→09:13)
[2019-07-19] MEDS: LOPERAMIDE LIQUID 120 ML BOTTLE PO SCH ×2 (09:04→19:33)
[2019-07-19] MEDS: DIPHENOXYLATE/ATROPINE 2.5/0.025MG TAB PO SCH (09:06)
[2019-07-19] MEDS: POTASSIUM CHLORIDE 20 MEQ/15 ML UDC GT SCH (09:06)
[2019-07-19] MEDS: NYSTATIN SUSP 500,000 U/5 ML UDC PO SCH ×4 (09:07→19:33)
[2019-07-19] MEDS: SIMETHICONE 80 MG CHEW PO SCH ×2 (09:10→19:27)
[2019-07-19] MEDS: LANSOPRAZOLE 30 MG SOLTAB GT SCH ×2 (09:10→19:27)
[2019-07-19] MEDS: guaiFENesin SUGAR FREE 200 MG/10 ML UDC PO SCH ×2 (09:11→19:30)
[2019-07-19] MEDS: GLYCOPYRROLATE 1 MG TAB PO SCH ×2 (09:11→19:32)
[2019-07-19] MEDS: SERTRALINE HCL 100 MG TABLET PEG SCH (09:12)
--- NOTE | 2019-07-19 11:10 | Palliative Care Progress Note ---
Date of Service July 19, 2019 Assessment & Plan (1) Palliative care encounter: -Goals of care-plan is for discharge home with home health with transition to hospice. -Daughter Kathryn at bedside today and has some questions about what end of life would look like with patient's disease process. Specifically about the ventilator. Encouraged daughter to talk with patient and patient's about his goals and what would NOT be an acceptable quality of life for him and when he would want the ventilator turned off. For example: once no longer able to communicate, no longer able to smile, when unable to wake up and interact. Kathryn is a home health/hospice nurse and does understand end of life care well. Talked about when it would be appropriate to transition to hospice. -Sigmoid volvulus-conservative management, patient passing gas as well as stool -Dyspnea-resolved, continue home vent settings. -Will continue to follow and assist patient and family with medical decision making (2) Amyotrophic lateral sclerosis (ALS): (3) Sigmoid volvulus: (4) Dyspnea and respiratory abnormalities: Subjective Patient sleeping comfortably during my visit. Does easily wake. No new complaints. Daughter Kathryn at bedside-- discussed some end of life issues. Review of Systems Review of Systems: Patient sleeping during visit-- full ROS not obtained. Physical Exam Constitutional: + ill appearing ENMT: external ear and nose normal, oropharynx normal Neck: + tracheostomy present Respiratory: normal respiratory effort; no respiratory distress Cardiovascular: RRR, no murmur, no edema Gastrointestinal (Abdomen): Inspection/Auscultation: + abdomen distended Percussion/Palpation: + abdomen firm Skin: no rashes, warm and dry Neurologic: moves all extremities Results & Data Vital Signs (Past 12 Hours) Vital Signs Temp Pulse Pulse Resp BP Pulse Ox 07/19/19 11:02 96 H 17 91/66 L 95 07/19/19 07:42 36.3 C L 98 H 17 85/62 L 95 07/19/19 07:33 18 94 07/19/19 04:45 100/69 07/19/19 03:09 36.8 C 109 H 17 88/60 L 94 07/18/19 23:41 36.9 C 108 H 19 100/69 94 07/18/19 23:30 103 H 18 95 Time Spent Midlevel 35 minutes with >50% of the time spent at bedside with patient and family discussing condition and GOC.
[2019-07-19] MEDS ORDERED: VANCOMYCIN TROUGH ONE (11:30)
--- NOTE | 2019-07-19 15:47 | Hospitalist Progress Note ---
Date of Service July 19, 2019 Assessment & Plan (1) Sepsis: (2) Hypotension: resolved with IV fluids, stopped fluids and started tube feeds no further signs of sepsis, Lactic acid normal stop IV antibiotics (3) Small bowel obstruction: functional distension of colon moving bowels continue tube feeds (4) Sigmoid volvulus: discussed with surgery, either internal hernia or volvulus causing colonic and bowel distension however, likely a subacute issue as he has had the distension for a few weeks moving his bowels on a daily basis no extreme pain, no distress, no nausea resume tube feeds on 07/18 patient and family would never want any surgical intervention surgery will sign off (5) Amyotrophic lateral sclerosis (ALS): supportive care has services and family support at home will ask CM to try to get [facility] [facility], [facility] patient plans for home hospice going forward, palliative involved (6) Depression: mood is stable today despite circumstances (7) Weakness: ongoing, due to ALS Subjective patient resting comfortably tolerating tube feeds discussed with family, they likely cannot take him home until tomorrow, need to get things prepared vitals are stable no labs today he is moving bowels will transfer to medical floor this evening Review of Systems Review of Systems: All systems reviewed & are unremarkable except as noted in HPI & below Gastrointestinal: + bloating and + diarrhea/loose stools; no abdominal pain, no nausea, no vomiting and no constipation Physical Exam Constitutional: WD/WN, vitals as above Eyes: PERRL, conjunctivae normal, anicteric sclerae ENMT: external ear and nose normal, oropharynx normal Nose: + dry nasal mucous membranes Neck: trachea midline, no thyromegaly (tracheostomy in place) Respiratory: normal respiratory effort, lungs clear to auscultation (decreased breath sounds in bases) Cardiovascular: RRR, no murmur, no edema Gastrointestinal (Abdomen): Inspection/Auscultation: + abdomen distended and normal bowel sounds Percussion/Palpation: + tympanic to percussion and + abdomen firm; abdomen nontender Musculoskeletal: Head/Neck/Chest: normocephalic and head atraumatic Extremities: + abnormal strength (generalized weakness, cannot transition, moving arms well) and + muscle atrophy (muscles of hands and feet); no cyanosis and no clubbing Skin: no rashes, warm and dry Neurologic: normal touch/pain/proprioception, CN's II-XI intact bilaterally, moves all extremities and awake Speech / Cognition: + abnormal speech Motor/Sensory: + fasciculations; no tremor Psychiatric: A+Ox3, euthymic affect Lymphatic: no cervical or axillary lymphadenopathy Results & Data Vital Signs (Past 12 Hours) Vital Signs Temp Pulse Resp BP Pulse Ox 07/19/19 15:12 36.5 C 100 H 21 116/79 95 07/19/19 11:02 96 H 17 91/66 L 95 07/19/19 07:42 36.3 C L 98 H 17 85/62 L 95 07/19/19 07:33 18 94 07/19/19 04:45 100/69 Medications Administered Current Inpatient Medications Albuterol (Ventolin Hfa) 2 puffs INH Q6 PRN PRN Reason: Shortness Of Breath Or Wheezing Stop: 08/16/19 23:47 Diphenoxylate HCl/Atropine (Lomotil) 1 tab PO QAM [facility] Stop: 08/17/19 08:59 Last Admin: 07/19/19 09:06 Dose: 1 tab Documented by: Diphenoxylate HCl/Atropine (Lomotil) 1 tab PO TID PRN PRN Reason: Diarrhea Stop: 08/17/19 00:31 Enteral Nutritional Formula (Peptamen 1.5 Jas) 1,000 ml PEG DAILY@1400 JUDY; Protocol Stop: 08/17/19 13:59 Last Admin: 07/18/19 15:18 Dose: 1,000 ml Documented by: Gabapentin (Neurontin) 250 mg PO HS [facility] Stop: 08/17/19 20:59 Last Admin: 07/18/19 21:02 Dose: 250 mg Documented by: Glycopyrrolate (Robinul) 1 mg PO BID [facility] Stop: 08/17/19 08:59 Last Admin: 07/19/19 09:11 Dose: 1 mg Documented by: Guaifenesin (Robitussin Sugar Free) 1 mg PO BID [facility] Stop: 08/17/19 08:59 Last Admin: 07/19/19 09:11 Dose: 1 mg Documented by: Acetaminophen (Ofirmev) 1,000 mg in 100 mls @ 400 mls/hr IV Q8H PRN PRN Reason: Pain or Fever Stop: 07/21/19 00:51 Last Infusion: 07/18/19 21:17 Dose: Infused Documented by: Ioversol (Optiray 320 125ml) 116 ml IV ONCE PRN PRN Reason: Interaction Checking Stop: 07/21/19 19:08 Last Admin: 07/17/19 19:09 Dose: 116 ml Documented by: Lansoprazole (Prevacid) 30 mg GT BID [facility]Y Stop: 08/17/19 08:59 Last Admin: 07/19/19 09:10 Dose: 30 mg Documented by: Loperamide HCl (Imodium A-D Liquid) 2 mg PO BID [facility]Y Stop: 08/17/19 08:59 Last Admin: 07/19/19 09:04 Dose: 2 mg Documented by: Loperamide HCl (Imodium) 2 mg PO Q2H PRN PRN Reason: Diarrhea Stop: 08/17/19 10:16 Lorazepam (Ativan) 0.5 mg PO TID PRN PRN Reason: Anxiety Stop: 08/16/19 23:47 Lorazepam (Ativan) 0.5 mg PO HS [facility] Stop: 08/17/19 20:59 Last Admin: 07/18/19 21:02 Dose: 0.5 mg Documented by: Miscellaneous (Order Awaiting Action) 1 ea N/A QS [facility] Stop: 08/17/19 00:44 Last Admin: 07/19/19 09:04 Dose: Not Given Documented by: Miscellaneous (Check Scopolamine Patch Placement) 1 ea N/A QS [facility]Y Stop: 08/17/19 07:59 Last Admin: 07/19/19 09:03 Dose: 1 ea Documented by: Nystatin (Mycostatin) 5 ml PO QID [facility]Y Stop: 07/28/19 08:59 Last Admin: 07/19/19 11:55 Dose: 5 ml Documented by: Potassium Chloride (Uyen Ciel Elix) 20 meq GT DAILY [facility]Y Stop: 08/17/19 08:59 Last Admin: 07/19/19 09:06 Dose: 20 meq Documented by: Scopolamine (Transderm-Scop) 1.5 mg TD Q72H [facility]Y Stop: 08/17/19 08:59 Last Admin: 07/18/19 08:32 Dose: 1.5 mg Documented by: Sertraline HCl (Zoloft) 100 mg PEG DAILY [facility]Y Stop: 08/17/19 08:59 Last Admin: 07/19/19 09:12 Dose: 100 mg Documented by: Simethicone (Mylicon) 80 mg PO TID PRN PRN Reason: GAS/BLOATING Stop: 08/16/19 23:47 Simethicone (Mylicon) 80 mg PO BID JUDY Stop: 08/17/19 20:59 Last Admin: 07/19/19 09:10 Dose: 80 mg Documented by: Trazodone HCl (Desyrel) 25 mg GT HS JUDY Stop: 08/17/19 20:59 Last Admin: 07/18/19 20:48 Dose: 25 mg Documented by: PG Care Time/CCT Total # of Minutes Spent Total Time Spent with Patient: Total time spent is greater than 50% in coordination of care (as documented) at patient's floor/unit and/or counseling patient: (1) Hypotension Hypotension type: unspecified hypotension type Qualified Code(s): I95.9 - Hypotension, unspecified
[2019-07-19] MEDS: PEPTAMEN 1.5 CAL 1,000 ML BAG PEG SCH (15:49)
[2019-07-19] MEDS: TRAZODONE HCL 50 MG TAB GT SCH (19:28)
[2019-07-19] MEDS: LORazepam 0.5 MG TAB PO SCH (19:40)
[2019-07-19] MEDS: GABAPENTIN 250 MG/5 ML 470 ML BTL PO SCH (22:34)
[2019-07-20] MEDS: ACETAMINOPHEN 1,000 MG/100 ML VIAL IV PRN (00:13)
[2019-07-20] MEDS ORDERED: LORazepam 1 MG/2 ML VIAL IV STA (00:46)
[2019-07-20] MEDS ORDERED: LORazepam 2 MG/4 ML VIAL ONE (00:50)
[2019-07-20] MEDS: CHECK SCOPOLAMINE PATCH PLACEMENT SCH (01:14)
[2019-07-20] MEDS ORDERED: SODIUM CHLORIDE 0.9% 1000ML 1,000 ML IV SCH (03:58)
[2019-07-20] MEDS ORDERED: dilTIAZem HCl 5 MG/ML 5 ML VIAL IV STA ×2 (04:40→04:49)
[2019-07-20] MEDS ORDERED: FUROSEMIDE 40 MG in SYRINGE 0 ML IV ONE (04:42)
[2019-07-20] MEDS ORDERED: dilTIAZem HCl 5 MG/ML 5 ML VIAL IV ONE (04:43)
[2019-07-20] MEDS ORDERED: FUROSEMIDE 40 MG/4 ML VIAL IV ONE (04:43)
[2019-07-20] MEDS ORDERED: POTASSIUM ACETATE 20 MEQ in 0.9 % SODIUM CHLORIDE 100 ML IV ONE (04:48)
[2019-07-20] MEDS ORDERED: POTASSIUM CHLORIDE 20 MEQ TABCR PO STA (04:48)
[2019-07-20] MEDS ORDERED: METOPROLOL TARTRATE 1 MG/ML VIAL IV STA (04:52)
[2019-07-20] MEDS ORDERED: METOPROLOL TARTRATE 1 MG/ML VIAL IV ONE (04:53)
--- NOTE | 2019-07-20 05:31 | Progress Note ---
Date of Service July 20, 2019 Assessment & Plan (1) Amyotrophic lateral sclerosis (ALS): (2) Hypoxia: (3) Tachycardia: Have been following patient via nursing overnight 07/19-07/20. Patient noted to have increased tachycardia and agitation. Extra dose of ativan given, which helped for roughly 1 hour, but made patient groggy. HR continued to be elevated along with increasing respiratory rate, decreasing oxygen saturations, and increased oxygen requirements. Diminished urine output. Ordered CXR and KUB along with saline bolus. Called by nursing shortly after that there was an incident with his trach and there may have been some water that went down into his trach, but as it was caught early and immediately suctioned, clinical significance unknown. No significant change in vitals after incident. Patient required temporary bagging via trach to maintain O2 sat above 88; concern that diaphragm not strong enough to maintain o2 sats. Reviewed CXR which showed increased pulm congestion and continued signs of volvulus; DCd IVF. Administered 10 IV cardizem x 2 with minimal effect. Administered 5 IV lopressor, 40 IV lasix, and repleted 20IV and 40 PEG potassium replacement. Duoneb administered. Family called to bedside and updated. Pt appears stable at time of note. Will update with addendums prn. Results & Data Vital Signs (Past 12 Hours) Vital Signs Temp Pulse Pulse Resp BP BP Pulse Ox 07/20/19 04:54 130 H 135/82 07/20/19 03:46 98.4 F 138 H 30 H 107/84 92 07/19/19 23:39 123 H 27 H 94 07/19/19 23:37 98.8 F 123 H 25 H 120/89 95 07/19/19 19:50 98.1 F 118 H 24 119/81 95 Resident Activity Tracking Resident Involvement: Resident Care Provided and Shirt Sewer Coverage Note Care Provided: Adult Hospital Medicine
[2019-07-20] MEDS ORDERED: ALBUT/IPRATROP 3MG/0.5MG NEB 3 ML VIAL NEB STA (05:45)
[2019-07-20] MEDS ORDERED: LORazepam 0.5 MG/1 ML VIAL IV PRN (05:56)
[2019-07-20] MEDS ORDERED: MoRPHine SULFATE 2 MG/ML CARP ONE (05:58)
[2019-07-20] MEDS ORDERED: ATROPINE SULFATE 1% OP SOLN 5 ML BTL PO SCH (06:00)
[2019-07-20] MEDS: MoRPHine SULFATE 2 MG/ML CARP IV PRN ×2 (06:26→07:18)
[2019-07-20] MEDS ORDERED: MoRPHine SULFATE 4 MG/ML 1 ML CARP\\VIAL IV ONE (07:50)
[2019-07-20] MEDS: MoRPHine SULF/NSS 250 MG/250 ML BTL IV PRN ×2 (07:56→08:28)
--- NOTE | 2019-07-20 08:31 | XRay Report ---
XR chest 1V portable HISTORY: Shortness of breath. COMPARISON: Chest 07/17/2019. FINDINGS: No pneumothorax. Small bilateral pleural effusions and bibasilar densities are again noted. The heart remains mildly enlarged. Tracheostomy tube is within good position. There is mild central pulmonary vascular congestion without overt edema. There are low lung volumes. Old, healed bilateral clavicle fractures. Dilated gas-filled colon, unchanged. IMPRESSION: 1. Slight progression of the mild pulmonary vascular congestion without overt edema. 2. No change in the small bilateral pleural effusions and bibasilar densities. 3. Persistent gaseous distention of the colon. Electronically signed by: Fredi No M.D. 07/20/2019 8:30 AM
[2019-07-20] MEDS: NYSTATIN SUSP 500,000 U/5 ML UDC PO SCH (09:15)
--- NOTE | 2019-07-20 09:55 | Death Summary ---
Date of Service July 20, 2019 Pronouncement Note Date and Time of Date of : 07/20/19 Time of : 09:39 PCOD Preliminary cause of : Acute respiratory failure Contributing Factors (1) Sepsis: (2) Hypotension: (3) Small bowel obstruction: (4) Sigmoid volvulus: (5) Amyotrophic lateral sclerosis (ALS): (6) Depression: (7) Weakness: Summary Additional details: (1) Sepsis: (2) Hypotension: resolved with IV fluids, stopped fluids and started tube feeds no further signs of sepsis, Lactic acid normal stop IV antibiotics (3) Small bowel obstruction: functional distension of colon moving bowels continue tube feeds (4) Sigmoid volvulus: discussed with surgery, either internal hernia or volvulus causing colonic and bowel distension however, likely a subacute issue as he has had the distension for a few weeks moving his bowels on a daily basis no extreme pain, no distress, no nausea resume tube feeds on 07/18 patient and family would never want any surgical intervention surgery will sign off (5) Amyotrophic lateral sclerosis (ALS): supportive care has services and family support at home will ask CM to try to get [employer], [facility] patient plans for home hospice going forward, palliative involved (6) Depression: mood is stable today despite circumstances (7) Weakness: ongoing, due to ALS Plans were in placed to discharge to home on 07/20/19 on hospice care. However, patient had a large aspiration event over night / grade checker 07/20/19 and became hypoxic. HR went up into the 130's. He was in respiratory distress on the ventilator. His family came to the bedside. Discussed with the night time physician that the patient had suffered enough, would elect to make him comfortable. Placed on Morphine drip and once he was adequately sedated he was taken off the ventilator. He peacefully with his family by his side. Additional Data Confirmation of : no pulse, no respirations, no heart sounds and pupils fixed and dilated Family: at bedside Attending/PCP notified?: Yes Attending physician: Pablo Presley, DO Was code activated?: No Autopsy requested?: No sock lining examiner notified?: No Organ bank notified?: No Advance directives: Yes
== END 2019-07-20 12:42 | disposition expired | DRG 388 ==
LOC: ED 17:03 → SUATTDRO 22:08 → 2E 22:08